=== PATIENT | male | born 1955 | race Caucasian/White ===

== ENCOUNTER 2016-10-29 10:15 | Observation (INO) | payer MEDICARE, OTHER ==
[2016-10-29] MEDS ORDERED: NITRO-BID 2% UD PACKETS ONE (10:38)
--- NOTE | 2016-10-29 10:40 | ERPHSYRPT ---
- History of Present Illness Time Seen by Provider: 10/29/16 10:35 Historian: patient Exam Limitations: no limitations Patient Subjective Stated Complaint: pt here for chest pain to left side of chest that radiates to shculder for a couple hours, was at rest when pain started, no other syptoms,states pain is a pressure with stabbing pains off and on Triage Nursing Assessment: pt walked in a/o resp easy, chest clear, no edema Physician History: This 60-year-old white male who arrives with complaint of chest pain left lower chest anteriorly sharp in character but now dull ache worse with deep breathing symptoms since 2 hours states the pain radiates to her shoulder he states she has been seen by a timber hewer in the past secondary pain in his left arm he does have a history of high blood pressure he states that he has has had no history of myocardial infarctions in the past. Patient denies shortness of breath or nausea or diaphoresis. Past medical history includes psoriatic arthritis, osteoarthritis, chronic back pain. Past surgical history includes orthopedic surgery and back surgery. Timing/Duration: today (symptoms for 2 hours) Activities at Onset: rest Quality: dullness, sharpness Location: other (left lower anterior chest) Chest Pain Radiation: arm (left shoulder ) Severity of Pain-Max: moderate Severity of Pain-Current: moderate Modifying Factors: Improves With: breathing (worse with deep breathin) Associated Symptoms: hurts to breathe, No nausea, No vomiting, No palpitations, No heartburn, No abdominal pain, No shortness of breath, No cough, No diaphoresis, No chills, No fever, No fatigue, No weakness, No swelling/lump in chest, No syncope, No rash, No headache, No dizziness, No edema, No back pain Nitro Today/Relief: provided by ED (Nitropaste in the emergency room 1 inch) Aspirin Treatment Today: provided at home (patient to 325 mg 2 tabletsat home 1 hour ago) Allergies/Adverse Reactions: amitriptyline Allergy (Verified 10/29/16 10:24) hydromorphone HCl [From Dilaudid] Allergy (Verified 10/29/16 10:24) zolpidem tartrate [From Ambien] Allergy (Verified 10/29/16 10:24) Home Medications: Methotrexate Sodium [Methotrexate] 2.5 mg PO UD 01/06/14 [History] Prednisone 2.5 mg PO DAILY 01/06/14 [History] Calcium Carbonate/Vitamin D3 [Vitamin D-3 400 Units Tablet] 1 each PO DAILY 10/25 [History] Dicyclomine HCl [Bentyl] 10 mg PO .PRN 10/14/16 [History] Lisinopril 5 mg [Zestril 5 MG] 5 mg PO DAILY 10/14/16 [History] Morphine Sulfate 30 mg PO Q12H 10/14/16 [History] Vitamin B Complex 1 each PO DAILY 10/14/16 [History] Pravastatin Sodium 20 mg DAILY 10/29/16 [History] Hx Tetanus, Diphtheria Vaccination/Date Given: Yes (UNKNOWN) Hx Influenza Vaccination/Date Given: Yes Hx Pneumococcal Vaccination/Date Given: Yes Immunizations Up to Date: Yes - Review of Systems Constitutional: No Fever, No Chills Eyes: No Symptoms Ears, Nose, & Throat: No Symptoms Respiratory: No Cough, No Dyspnea Cardiac: Chest Pain, No Edema, No Palpitations, No Syncope, No Orthopnea Abdominal/Gastrointestinal: No Abdominal Pain, No Nausea, No Vomiting, No Diarrhea Genitourinary Symptoms: No Dysuria Musculoskeletal: No Back Pain, No Neck Pain Skin: No Rash Neurological: No Dizziness, No Focal Weakness, No Sensory Changes Psychological: No Symptoms Endocrine: No Symptoms All Other Systems: Reviewed and Negative - Past Medical History Pertinent Past Medical History: Yes Neurological History: No Pertinent History Cardiac History: High Cholesterol, Hypertension Respiratory History: No Pertinent History Endocrine Medical History: No Pertinent History Musculoskeletal History: Arthritis GI Medical History: Colitis History: No Pertinent History Psycho-Social History: No Pertinent History Male Reproductive Disorders: No Pertinent History Other Medical History: back problems - Past Surgical History Past Surgical History: Yes Musculoskeletal: Orthopedic Surgery Other Surgical History: back surgery - Social History Smoking Status: Former smoker How long have you smoked: 45 Exposure to second hand smoke: No Drug Use: none Patient Lives Alone: No - Nursing Vital Signs Nursing Vital Signs: Initial Vital Signs Temperature 97.5 F Temperature Source Oral Pulse Rate [] 70 Pulse Rate 65 Respiratory Rate 18 Blood Pressure [] 110/67 Pain Intensity 0 - Physical Exam General Appearance: mild distress Eye Exam: PERRL/EOMI, eyes nml inspection Ears, Nose, Throat Exam: normal ENT inspection, moist mucous membranes Neck Exam: normal inspection, non-tender, supple, full range of motion Respiratory Exam: normal breath sounds, lungs clear, airway intact, other (pain with deep breathing left lower anterior chest), No chest tenderness, No respiratory distress, No diminished breath sounds, No accessory muscle use, No prolonged expirations, No crackles/rales, No rhonchi, No wheezing, No stridor, No pleural rub Cardiovascular Exam: regular rate/rhythm, normal heart sounds, normal peripheral pulses Gastrointestinal/Abdomen Exam: soft, No tenderness, No mass Back Exam: normal inspection, No CVA tenderness, No vertebral tenderness Extremity Exam: normal inspection, normal range of motion Neurologic Exam: alert, oriented x 3, cooperative, normal mood/affect, sensation nml, No motor deficits Skin Exam: normal color, warm, dry SpO2 Interpretation: normal (98%) SpO2: 98 Oxygen Delivery: Room Air - Course Nursing assessment & vital signs reviewed: Yes EKG Interpreted by Me: RATE (71 bpm), Sinus Rhythm, Other (EKG: Sinus rhythm, 71 bpm, normal axis, no acute ST or T wave changes, essentially normal EKG) - Radiology Exams Chest X-ray Interpretation: Discussed w/ radiologist (CHEST X_RAY: iMPRESSION 1. mINIMAL transverse hazy density at the lateral left lung base likely represents plate atelectasis or minimal scarring. This appears to be new from March 29, 2009, no airspace infiltrates or other acute cardiopulmonary process is seen) - CT Exams Chest CT Interpretation: Discussed w/radiologist (CT chest with contrast impression 1. No evidence of acute pulmonary embolism, no evidence of thoracic aortic aneurysm or dissection 2. Minimal plate atelectasis versus linear scarring left lung base laterally 3. No other acute cardiopulmonary prrocess is seen, subtle emphysematous changes seen within both lung apices) Ordered Tests: Active Orders 24 hr Category Date Time Status EKG-ER Only STAT Care 10/29/16 10:34 Active IV Insertion STAT Care 10/29/16 10:34 Active Pulse Oximetry (ED) STAT Care 10/29/16 10:34 Active CHEST 1 VIEW (PORTABLE) Stat Exams 10/29/16 10:34 Completed CHEST WITH CONTRAST [CT] Stat Exams 10/29/16 11:49 Completed CBC W DIFF Stat Lab 10/29/16 10:30 Completed CMP Stat Lab 10/29/16 10:30 Completed D-DIMER QUANTITATION Stat Lab 10/29/16 10:30 Completed TROPONIN Q3H Lab 10/29/16 10:45 Completed TROPONIN Q3H Lab 10/29/16 13:25 Completed TROPONIN Q3H Lab 10/29/16 16:45 Ordered TROPONIN Q3H Lab 10/29/16 19:45 Ordered TROPONIN Q3H Lab 10/29/16 22:45 Ordered Medication Summary Discontinued Medications Generic Name Dose Route Start Last Admin Trade Name Freq PRN Reason Stop Dose Admin Morphine Sulfate 4 mg 10/29/16 11:29 10/29/16 11:27 Morphine Sulfate 4 Mg Inj IV 10/29/16 11:30 4 mg STAT ONE Administration Morphine Sulfate Confirm 10/29/16 11:30 Morphine Sulfate 4 Mg Inj Administered 10/29/16 11:31 Dose 4 mg .ROUTE .STK-MED ONE Nitroglycerin Confirm 10/29/16 10:38 Nitro-Bid 2% Ud Packets Administered 10/29/16 10:39 Dose 1 gm .ROUTE .STK-MED ONE Nitroglycerin 1 gm 10/29/16 10:46 10/29/16 10:56 Nitro-Bid 2% Ud Packets TOP 10/29/16 10:47 1 gm STAT ONE Administration Lab/Rad Data: Laboratory Result Diagrams 10/29/16 10:30 10/29/16 10:30 Laboratory Results 10/29/16 10/29/16 10/29/16 Range/Units 13:25 10:45 10:30 WBC (4.0-10.5) K/mm3 RBC (4.1-5.6) M/mm3 Hgb (12.5-18.0) gm/dl Hct (42-50) % MCV (78-100) fl MCH (26-32) pg MCHC (32-36) g/dl RDW (11.5-14.0) % Plt Count (150-450) K/mm3 MPV (6-9.5) fl Gran % (36.0-66.0) % Lymphocytes % (24.0-44.0) % Monocytes % (0.0-12.0) % Eosinophils % (0.00-5.0) % Basophils % (0.0-0.4) % Basophils # (0-0.4) D-Dimer 501.12 H* (0.00-500.00) ng/mL Sodium (136-145) mEq/L Potassium (3.5-5.1) mEq/L Chloride (98-107) mEq/L Carbon Dioxide (21-32) mEq/L Anion Gap (5-15) MEQ/L BUN (9-20) mg/dL Creatinine (0.55-1.30) mg/dl Estimated GFR ML/MIN Glucose (70-110) MG/DL Calcium (8.5-10.1) mg/dL Total Bilirubin (0.2-1.0) mg/dL AST (15-37) U/L ALT (12-78) U/L Alkaline Phosphatase (46-116) U/L Troponin I < 0.017 < 0.017 (0.000-0.056) ng/ml Serum Total Protein (6.4-8.2) gm/dL Albumin (3.4-5.0) g/dL 10/29/16 10/29/16 Range/Units 10:30 10:30 WBC 8.5 (4.0-10.5) K/mm3 RBC 4.40 (4.1-5.6) M/mm3 Hgb 13.6 (12.5-18.0) gm/dl Hct 40.2 L (42-50) % MCV 91.4 (78-100) fl MCH 30.9 (26-32) pg MCHC 33.8 (32-36) g/dl RDW 12.9 (11.5-14.0) % Plt Count 189 (150-450) K/mm3 MPV 10.0 H (6-9.5) fl Gran % 50.9 (36.0-66.0) % Lymphocytes % 38.0 (24.0-44.0) % Monocytes % 9.6 (0.0-12.0) % Eosinophils % 1.3 (0.00-5.0) % Basophils % 0.2 (0.0-0.4) % Basophils # 0.02 (0-0.4) D-Dimer (0.00-500.00) ng/mL Sodium 141 (136-145) mEq/L Potassium 4.1 (3.5-5.1) mEq/L Chloride 105 (98-107) mEq/L Carbon Dioxide 27.5 (21-32) mEq/L Anion Gap 12.2 (5-15) MEQ/L BUN 15 (9-20) mg/dL Creatinine 0.84 (0.55-1.30) mg/dl Estimated GFR > 60 ML/MIN Glucose 119 H (70-110) MG/DL Calcium 8.5 (8.5-10.1) mg/dL Total Bilirubin 0.50 (0.2-1.0) mg/dL AST 25 (15-37) U/L ALT 28 (12-78) U/L Alkaline Phosphatase 45 L (46-116) U/L Troponin I (0.000-0.056) ng/ml Serum Total Protein 6.8 (6.4-8.2) gm/dL Albumin 4.1 (3.4-5.0) g/dL - Progress Progress: improved Air Movement: fair Progress Note: 10/29/16 10:41 60-year-old white male arrives with complaint of pain in left anterior chest which was initially sharp worse with deep breathing but now described as dull symptoms going on for 2 hours began at rest patient states that he is not short of breath he has no nausea no diaphoresis, patient took 2 full size aspirin tablets at one hour prior to arrival. Patient is on morphine at home for chronic back pain he does not want any pain medications in the emergency room. Patient is given 1 inch of Nitropaste in the emergency room. Awaiting labs EKG essentially normal, 10/29/16 14:[address] chest with contrast negative PE negative aortic dissection or aneurysm. Patient is feeling better I had arranged for patient to be placed on admission with serial troponin however patient states that he really does not want to be admitted. Will await second troponin and discharge if normal. Patient does have morphine at home 10/29/16 14:16 Patient now states that he would like to be placed on observation we will go ahead and write for orders. placed - Departure Time of Disposition: 14:18 Departure Disposition: Observation Clinical Impression: Chest pain Qualifiers: Chest pain type: unspecified Qualified Code(s): R07.9 - Chest pain, unspecified Condition: Fair Critical Care Time: No
[2016-10-29] MEDS ORDERED: NITRO-BID 2% UD PACKETS TOP ONE (10:46)
[2016-10-29 10:48] LABS: BASOPHIL % 0.2 % (0.0-0.4); Eosinophil % 1.3 % (0.00-5.0); Granulocytes % 50.9 % (36.0-66.0); Mean Cell Volume 91.4 fl (78-100); Mean Corpuscular Hemoglobin 30.9 pg (26-32); Monocytes % 9.6 % (0.0-12.0); Platelet Count 189 K/mm3 (150-450); Red Cell Distribution Width 12.9 % (11.5-14.0); White Blood Count 8.5 K/mm3 (4.0-10.5)
[2016-10-29 11:00] LABS: ALBUMIN 4.1 g/dL (3.4-5.0); ALKALINE PHOSPHATASE 45 U/L (46-116); ANION GAP 12.2 MEQ/L (5-15); BLOOD UREA NITROGEN 15 mg/dL (9-20); CHLORIDE 105 mEq/L (98-107); Carbon Dioxide 27.5 mEq/L (21-32); Glucose 119 MG/DL (70-110); Potassium 4.1 mEq/L (3.5-5.1); SGOT/AST 25 U/L (15-37); SGPT/ALT 28 U/L (12-78); SODIUM 141 mEq/L (136-145); Total Protein 6.8 gm/dL (6.4-8.2)
--- NOTE | 2016-10-29 11:17 | XRAY ---
Exam: AP upright portable chest film from 1100 hrs. on 10/29/2016. Comparison: Two-view chest from 03/29/2009. Indication: Chest pain. Findings: The transverse heart size is normal. The adrianna and mediastinal structures appear unremarkable. There is adequate inflation of the lungs. The pulmonary vessels are not congested. There is minimal transverse hazy density at the lateral left lung base which likely represents some mild subsegmental atelectasis or scarring. This is new from 03/29/2009. A discrete air space infiltrate is not seen. No pneumothorax is seen. No Brayan B-lines or pleural effusions blunting the lateral costophrenic angles are seen. No acute osseous process is seen. There is evidence of prior anterior surgical fusion at C6-C7 with a small metallic plate and 4 screws. EKG leads are seen in place. Impression: 1. Minimal transverse hazy density at the lateral left lung base likely represents plate atelectasis or minimal scarring. This does appear to be new from 03/29/2009. 2. No air space infiltrates or other acute cardiopulmonary process is seen.
[2016-10-29] MEDS ORDERED: MORPHINE SULFATE 4 MG INJ IV ONE (11:29)
[2016-10-29] MEDS ORDERED: MORPHINE SULFATE 4 MG INJ ONE (11:30)
--- NOTE | 2016-10-29 13:35 | XRAY ---
Examination: CT of the chest with IV contrast per PE protocol from 10/29/2016. CTDI: 20.00 Comparison: AP upright portable chest film from 10/29/2016. Indication: Chest pain, elevated d-dimer. Technique: Post-IV contrast axial images were obtained through the chest protocol using 80 cc of [id number]-370 IV contrast material. Reconstructed coronal MIP and sagittal images were created and reviewed. Findings: The pulmonary arteries are well opacified and reveal no filling defects to suggest pulmonary embolism. The thoracic aorta reveals no evidence of aneurysm or dissection. The heart size is normal. Some left coronary artery vascular calcification is seen. No pericardial effusion is seen. No abnormally enlarged mediastinal or perihilar lymph nodes are seen. Subtle emphysematous changes are seen within the lung apices, right greater than left. There is a small calcified granuloma within the posterior left lower lobe. Some posterior dependent atelectatic changes are seen within both lower lung mach[place], more prominent on the left than right. There also appears to be some minimal subsegmental plate atelectasis versus scarring at the lateral left lung base. No air space infiltrates, pneumothorax, or pleural fluid is seen. The central airways are patent. No suspicious soft tissue lung nodules are seen. No acute process is seen within the visualized upper abdomen. The adrenal glands appear normal. The skeleton reveals no acute fracture or aggressive bone lesion. There is evidence of prior lower anterior cervical fusion with a small metallic plate and 4 screws. Impression: 1. I see no evidence of acute pulmonary embolism. Nor do I see evidence of thoracic aortic aneurysm or aortic dissection. Incidentally, the left vertebral artery arises directly from the aortic arch rather than the left subclavian artery. This represents a normal variant. 2. Minimal plate atelectasis versus linear scarring is seen at the lateral left lung base. No air space infiltrates are seen. There are also some minor atelectatic changes within the posterior lung bases. 3. No other acute cardiopulmonary process is seen. Subtle emphysematous changes are seen within both lung apices, right greater than left.
[2016-10-29] MEDS ORDERED: Zofran 4 MG/2 ML VIAL IV PRN (15:39)
[2016-10-29] MEDS ORDERED: MORPHINE SULFATE 4 MG INJ IV PRN (15:39)
[2016-10-29] MEDS ORDERED: TYLENOL 325 MG PO PRN (18:07)
--- NOTE | 2016-10-29 18:08 | PCM.HP ---
History of Present Illness - Chief Complaint Chief Complaint: chest pain Date: 10/29/16 History of Present Illness: is a 60 year old male. who presented with sudden onset of left sided chest pain radiating to the shoulder and more sharp pain that changed to an aching pain no shortness of breath or diaphoresis. No vomiting no nausea. No recent illness, no dyspnea with exertion, no orthopnea. No swelling no recent increased activity or injury. Follows with Dr. Saez for cardiology. - Review of Systems Constitutional: No Fever, No Chills Eyes: No Symptoms Ears, Nose, & Throat: No Symptoms Respiratory: No Cough, No Short Of Breath Cardiac: Chest Pain, No Edema, No Syncope Abdominal/Gastrointestinal: No Abdominal Pain, No Nausea, No Vomiting, No Diarrhea Genitourinary Symptoms: No Dysuria Musculoskeletal: No Back Pain, No Neck Pain Skin: No Rash Neurological: No Dizziness, No Focal Weakness, No Sensory Changes Psychological: No Symptoms Endocrine: No Symptoms Hematologic/Lymphatic: No Symptoms Immunological/Allergic: No Symptoms Medications & Allergies Home Medications: Home Medication List Methotrexate Sodium [Methotrexate] 2.5 mg PO UD 01/06/14 [History Confirmed ] Prednisone 2.5 mg PO DAILY 01/06/14 [History Confirmed 10/29/16] Calcium Carbonate/Vitamin D3 [Vitamin D-3 400 Units Tablet] 1 each PO DAILY 10/25 [History Confirmed 10/29/16] Dicyclomine HCl [Bentyl] 10 mg PO DAILY 10/14/16 [History Confirmed 10/29/16] Lisinopril 5 mg [Zestril 5 MG] 5 mg PO DAILY 10/14/16 [History Confirmed 10/29/16] Morphine Sulfate 30 mg PO BID 10/14/16 [History Confirmed 10/29/16] Vitamin B Complex 1 each PO DAILY 10/14/16 [History Confirmed 10/29/16] Mesalamine [Lialda] 1.2 gm PO UD 10/29/16 [History Confirmed 10/29/16] Pravastatin Sodium 20 mg PO HS 10/29/16 [History Confirmed 10/29/16] Allergies/Adverse Reactions: Allergies Allergy/AdvReac Type Severity Reaction Status Date / Time amitriptyline Allergy Verified 10/29/16 10:24 hydromorphone HCl Allergy Verified 10/29/16 10:24 [From Dilaudid] zolpidem tartrate Allergy Verified 10/29/16 10:24 [From Ambien] - Past Medical History Past Medical History: Yes Neurological History: No Pertinent History Cardiac History: High Cholesterol, Hypertension Respiratory History: No Pertinent History Endocrine Medical History: No Pertinent History Musculoskelatal History: Arthritis, Degenerative Disk Disease GI Medical History: Colitis History: No Pertinent History Pyscho-Social History: Depression Male Reproductive Disorders: No Pertinent History Comment: ulcerative colitis dx 4 mos ago - Past Surgical History Past Surgical History: Yes Musculskeletal Surgical Hx: Orthopedic Surgery Other Surgical History: back surgery fuased C 4- 5 - Social History Smoking Status: Former smoker How long have you smoked: 45 Exposure to second hand smoke: No Alcohol: Rarely Drug Use: none - Physical Exam Vital Signs: Vital Signs - 24 hr Temp Pulse Pulse Resp BP Pulse Ox 10/29/16 16:50 97.7 F 65 20 108/63 98 10/29/16 16:30 97.7 F 65 20 108/63 98 10/29/16 16:00 97.7 F 65 20 108/63 98 10/29/16 15:05 97.7 F 65 20 108/63 97 10/29/16 14:47 58 L 16 97 10/29/16 14:18 98 10/29/16 13:15 65 18 110/67 10/29/16 12:30 97 10/29/16 11:34 62 18 122/80 10/29/16 11:20 61 18 144/84 10/29/16 10:45 56 L 16 125/80 10/29/16 10:22 70 10/29/16 10:18 97.5 F 72 16 134/81 98 10/29/16 10:15 98 General Appearance: no apparent distress, alert Neurologic Exam: alert, oriented x 3, cooperative, normal mood/affect, nml cerebellar function, nml station & gait, sensation nml, No motor deficits Eye Exam: PERRL/EOMI, eyes nml inspection Ears, Nose, Throat Exam: normal ENT inspection, TMs normal, pharynx normal, moist mucous membranes Neck Exam: normal inspection, non-tender, supple, full range of motion Respiratory Exam: normal breath sounds, chest tenderness (left anterior costal border), lungs clear, No respiratory distress Cardiovascular Exam: regular rate/rhythm, normal heart sounds, normal peripheral pulses Gastrointestinal/Abdomen Exam: soft, normal bowel sounds, No tenderness, No mass Back Exam: normal inspection, normal range of motion, No CVA tenderness, No vertebral tenderness Extremity Exam: normal inspection, normal range of motion, pelvis stable Skin Exam: normal color, warm, dry, No rash Lymphatic Exam: No adenopathy Results - Labs Lab/Micro Results: Lab Results-Last 24 Hours 10/29/16 Range/Units 16:45 Troponin I < 0.017 (0.000-0.056) ng/ml - Other Procedures and Tests Respiratory Therapy 10/30/16 05:00 EKG ONCE 10/31/16 05:00 EKG ONCE 11/01/16 05:00 EKG ONCE Assessment/Plan (1) Chest pain Current Visit: Yes Status: Acute Qualifiers: Chest pain type: unspecified Qualified Code(s): R07.9 - Chest pain, unspecified Assessment & Plan: with risk factor will do rule out [place] telemetry received aspirin continue statin appears more consistent with costal chondritis right now continue rule out pain is improving now if coke still cleaner tomorrow discussed trial of short term increased steroid. Will have f/u for stress testing with his gamemaster Dr. Saez if seriel testing remains negative EKG reviewed. ddimer elevated but CT negative continue obs Code(s): R07.9 - CHEST PAIN, UNSPECIFIED (2) Ulcerative colitis Current Visit: Yes Status: Chronic Code(s): K51.90 - ULCERATIVE COLITIS, UNSPECIFIED, WITHOUT COMPLICATIONS (3) Lumbar degenerative disc disease Current Visit: Yes Status: Acute Assessment & Plan: his chronic pain medications were confirmed with inspect and continued. Code(s): M51.36 - OTHER INTERVERTEBRAL DISC DEGENERATION, LUMBAR REGION
[2016-10-29] MEDS ORDERED: BENTYL 20 MG PO PRN (18:22)
[2016-10-29] MEDS: Sodium Chloride 0.9% 10 ML FLUSH Syringe IV SCH (21:20)
[2016-10-29] MEDS: MS CONTIN 30 MG PO SCH (21:20)
[2016-10-29] MEDS ORDERED: ZOCOR 20MG PO SCH (22:00)
[2016-10-30 04:10] VITALS: O2SAT 94
[2016-10-30 05:33] LABS: BASOPHIL % 0.3 % (0.0-0.4); Eosinophil % 2.1 % (0.00-5.0); Granulocytes % 47.1 % (36.0-66.0); Lymphocytes % 37.8 % (24.0-44.0); Mean Corpuscular Hemoglobin 30.7 pg (26-32); Mean Platelet Volume 10.3 fl (6-9.5); Monocytes % 12.7 % (0.0-12.0); Platelet Count 167 K/mm3 (150-450); White Blood Count 6.5 K/mm3 (4.0-10.5)
[2016-10-30] MEDS: Sodium Chloride 0.9% 10 ML FLUSH Syringe IV SCH ×2 (05:45→08:19)
[2016-10-30 06:23] LABS: ALBUMIN 3.6 g/dL (3.4-5.0); ALKALINE PHOSPHATASE 42 U/L (46-116); ANION GAP 10.9 MEQ/L (5-15); BLOOD UREA NITROGEN 14 mg/dL (9-20); CHLORIDE 107 mEq/L (98-107); Carbon Dioxide 28.5 mEq/L (21-32); Cholesterol 177 mg/dL (100-200); Glucose 93 MG/DL (70-110); LDL, DIRECT 117 mg/dL (5-99); Potassium 4.1 mEq/L (3.5-5.1); SGOT/AST 19 U/L (15-37); SGPT/ALT 22 U/L (12-78); SODIUM 142 mEq/L (136-145); TRIGLYCERIDE 119 mg/dL (30-200)
[2016-10-30] MEDS ORDERED: BENTYL 20 MG PO PRN (06:37)
[2016-10-30] MEDS ORDERED: MESALAMINE 1.2 GM PO SCH (06:45)
[2016-10-30] MEDS ORDERED: MEDICATION INTERVENTION MC SCH (07:00)
[2016-10-30 07:33] VITALS: BP 111/62; PULSE 62
[2016-10-30] MEDS: MS CONTIN 30 MG PO SCH (08:16)
--- NOTE | 2016-10-30 08:26 | PCM.DCORD ---
- Discharge Discharge Date: 10/30/16 Disposition: Home, Self-Care Condition: Fair Prescriptions: New Prednisone 10 mg [Deltasone 10 mg] 30 mg PO DAILY #15 tablet Continue Methotrexate Sodium [Methotrexate] 2.5 mg PO UD Prednisone 2.5 mg PO DAILY Vitamin B Complex 1 each PO DAILY Dicyclomine HCl [Bentyl] 10 mg PO DAILY Lisinopril 5 mg [Zestril 5 MG] 5 mg PO DAILY Morphine Sulfate 30 mg PO BID Calcium Carbonate/Vitamin D3 [Vitamin D-3 400 Units Tablet] 1 each PO DAILY Pravastatin Sodium 20 mg PO HS Mesalamine [Lialda] 2 tab PO BID Follow up with: PAIGE PALUMBO [Primary Care Provider] - KAREY DIAZ [COURTESY STAFF] - 1 Week Forms: Patient Portal Information
--- NOTE | 2016-10-30 08:26 | PCM.DS ---
Discharge Summary Date of Admission: 10/29/16 14:55 Date of Discharge: 10/30/16 Admitting Physician: PAIGE PALUMBO Primary Care Provider: PAIGE PALUMBO Allergies Allergies amitriptyline Allergy (Verified 10/29/16 10:24) hydromorphone HCl [From Dilaudid] Allergy (Verified 10/29/16 10:24) zolpidem tartrate [From Ambien] Allergy (Verified 10/29/16 10:24) Hospital Summary - Hospital Course Hospital Course: he presented with new worsening left sided chest pain sharp in nature but to a dull ache and radiating at times with sharp pains to the left shoulder no fever chills cough sob edema palpitations or syncope. Pain worse with palpation and breathing He had serial enzymes negative seriel ekg showed no change and the pain was reproducible discussed this likely represents MSK etiology and will trial treatment with short coarse of steroid burst. 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 Tele had no events. - Vitals & Intake/Output Vital Signs: Vital Signs Temperature 97.7 F 10/30/16 07:32 Pulse Rate 62 10/30/16 07:32 Respiratory Rate 20 10/30/16 07:32 Blood Pressure 111/62 10/30/16 07:32 O2 Sat by Pulse Oximetry 94 L 10/30/16 07:32 Intake & Output: Intake & Output 10/27/16 10/28/16 10/29/16 10/30/16 11:59 11:59 11:59 11:59 Intake Total 2731 Balance 2731 Weight 91.626 kg - Lab Result Diagrams: 10/30/16 05:00 10/30/16 05:00 Lab Results-Last 24 Hrs: Lab Results-Last 24 Hours 10/29/16 10/30/16 10/30/16 Range/Units 16:45 05:00 05:00 WBC 6.5 (4.0-10.5) K/mm3 RBC 4.10 (4.1-5.6) M/mm3 Hgb 12.6 (12.5-18.0) gm/dl Hct 37.7 L (42-50) % MCV 92.0 (78-100) fl MCH 30.7 (26-32) pg MCHC 33.4 (32-36) g/dl RDW 13.0 (11.5-14.0) % Plt Count 167 (150-450) K/mm3 MPV 10.3 H (6-9.5) fl Gran % 47.1 (36.0-66.0) % Lymphocytes % 37.8 (24.0-44.0) % Monocytes % 12.7 H (0.0-12.0) % Eosinophils % 2.1 (0.00-5.0) % Basophils % 0.3 (0.0-0.4) % Basophils # 0.02 (0-0.4) Sodium 142 (136-145) mEq/L Potassium 4.1 (3.5-5.1) mEq/L Chloride 107 (98-107) mEq/L Carbon Dioxide 28.5 (21-32) mEq/L Anion Gap 10.9 (5-15) MEQ/L BUN 14 (9-20) mg/dL Creatinine 0.72 (0.55-1.30) mg/dl Estimated GFR > 60 ML/MIN Glucose 93 (70-110) MG/DL Calcium 8.6 (8.5-10.1) mg/dL Total Bilirubin 0.50 (0.2-1.0) mg/dL AST 19 (15-37) U/L ALT 22 (12-78) U/L Alkaline Phosphatase 42 L (46-116) U/L Troponin I < 0.017 (0.000-0.056) ng/ml Serum Total Protein 6.0 L (6.4-8.2) gm/dL Albumin 3.6 (3.4-5.0) g/dL Triglycerides 119 (30-200) mg/dL Cholesterol 177 (100-200) mg/dL LDL Cholesterol 117 H (5-99) mg/dL HDL Cholesterol 48 (35-60) mg/dL Heart Disease Risk Ratio 3.7 10/30/16 Range/Units 05:00 WBC (4.0-10.5) K/mm3 RBC (4.1-5.6) M/mm3 Hgb (12.5-18.0) gm/dl Hct (42-50) % MCV (78-100) fl MCH (26-32) pg MCHC (32-36) g/dl RDW (11.5-14.0) % Plt Count (150-450) K/mm3 MPV (6-9.5) fl Gran % (36.0-66.0) % Lymphocytes % (24.0-44.0) % Monocytes % (0.0-12.0) % Eosinophils % (0.00-5.0) % Basophils % (0.0-0.4) % Basophils # (0-0.4) Sodium (136-145) mEq/L Potassium (3.5-5.1) mEq/L Chloride (98-107) mEq/L Carbon Dioxide (21-32) mEq/L Anion Gap (5-15) MEQ/L BUN (9-20) mg/dL Creatinine (0.55-1.30) mg/dl Estimated GFR ML/MIN Glucose (70-110) MG/DL Calcium (8.5-10.1) mg/dL Total Bilirubin (0.2-1.0) mg/dL AST (15-37) U/L ALT (12-78) U/L Alkaline Phosphatase (46-116) U/L Troponin I < 0.017 (0.000-0.056) ng/ml Serum Total Protein (6.4-8.2) gm/dL Albumin (3.4-5.0) g/dL Triglycerides (30-200) mg/dL Cholesterol (100-200) mg/dL LDL Cholesterol (5-99) mg/dL HDL Cholesterol (35-60) mg/dL Heart Disease Risk Ratio - Procedures and Test Procedures and Tests throughout Hospitalization: Therapy Orders & Screens 10/29/16 17:28 EKG ONCE Comment: Diagnosis: chest pain 10/30/16 05:00 EKG ONCE Comment: Diagnosis: chest pain 10/31/16 05:00 EKG ONCE Comment: Diagnosis: chest pain 11/01/16 05:00 EKG ONCE Comment: Diagnosis: chest pain Discharge Exam General Appearance: no apparent distress, alert Neurologic Exam: alert, oriented x 3, cooperative, normal mood/affect, nml cerebellar function, sensation nml, No motor deficits Skin Exam: normal color, warm, dry Eye Exam: PERRL, EOMI, eyes nml inspection Ears, Nose, Throat Exam: normal ENT inspection, pharynx normal, moist mucous membranes Neck Exam: normal inspection, non-tender, supple, full range of motion Respiratory Exam: normal breath sounds, chest tenderness (left anterior reproduces symptoms.), lungs clear, No respiratory distress Cardiovascular Exam: regular rate/rhythm, normal heart sounds Gastrointestinal/Abdomen Exam: soft, No tenderness, No mass Extremity Exam: normal inspection, normal range of motion Back Exam: normal inspection, normal range of motion, No CVA tenderness, No vertebral tenderness Male Genitalia Exam: deferred Rectal Exam: deferred Final Diagnosis/Problem List - Final Discharge Diagnosis/Problem (1) Chest pain Status: Acute (2) Ulcerative colitis Status: Chronic (3) Lumbar degenerative disc disease Status: Acute (4) Costal chondritis Status: Acute - Discharge Discharge Date: 10/31/16 Disposition: Home, Self-Care Condition: Good Prescriptions: New Prednisone 10 mg [Deltasone 10 mg] 30 mg PO DAILY #15 tablet Continue Methotrexate Sodium [Methotrexate] 2.5 mg PO UD Prednisone 2.5 mg PO DAILY Vitamin B Complex 1 each PO DAILY Dicyclomine HCl [Bentyl] 10 mg PO DAILY Lisinopril 5 mg [Zestril 5 MG] 5 mg PO DAILY Morphine Sulfate 30 mg PO BID Calcium Carbonate/Vitamin D3 [Vitamin D-3 400 Units Tablet] 1 each PO DAILY Pravastatin Sodium 20 mg PO HS Mesalamine [Lialda] 2 tab PO BID Instructions: Atypical Chest Pain Follow up with: PAIGE PALUMBO [Primary Care Provider] - 11/06/16 1:45 pm KAREY SAEZ [COURTESY STAFF] - 11/12/16 10:45 am (Follow up is with Physician Hr Leader of Dr. Neymar Saez) Forms: Discharge Instructions, Patient Portal Information
[2016-10-30] MEDS ORDERED: ASACOL HD PO SCH (08:30)
[2016-10-30] MEDS ORDERED: Zestril 5 MG PO SCH (10:00)
[2016-10-30] MEDS ORDERED: DELTASONE 5 MG PO SCH (10:00)
[2016-10-30] MEDS ORDERED: PREDNISONE 2.5 MG PO SCH (10:00)
== END 2016-10-30 10:15 | disposition home or self-care (01) ==
LOC: ED 10:15 → MED SURG 14:55
PROVIDERS: ADMIT Family Medicine; ATTEND Family Medicine
DX: R07.9 Chest pain, unspecified (principal); K51.90 Ulcerative colitis, unspecified, without complications; M51.36 Other intervertebral disc degeneration, lumbar region; M94.0 Chondrocostal junction syndrome [Tietze]; I10 Essential (primary) hypertension; E78.00 Pure hypercholesterolemia, unspecified; M19.90 Unspecified osteoarthritis, unspecified site; F32.9 Major depressive disorder, single episode, unspecified; Z79.899 Other long term (current) drug therapy
CPT/HCPCS: 36000; 36415; 71010; 71260; 80053; 80061; 83721; 84484; 85025; 85379; 93005; 93268; 94760; 96374; 99285; G0378; J2270; A9270-GY; J7506

== ENCOUNTER 2017-01-31 16:10 | Emergency (ER) | payer MEDICARE, OTHER ==
[2017-01-31] MEDS ORDERED: Sodium Chloride 0.9% 1000 ML 1,000 ML IV STA ×2 (16:30→17:51)
[2017-01-31] MEDS ORDERED: Zofran 4 MG/2 ML VIAL IV ONE (16:31)
[2017-01-31] MEDS ORDERED: MORPHINE SULFATE 4 MG INJ IV ONE (16:31)
--- NOTE | 2017-01-31 16:35 | ERPHSYRPT ---
- History of Present Illness Time Seen by Provider: 01/31/17 16:31 Historian: patient Exam Limitations: no limitations Patient Subjective Stated Complaint: PT states "About 2 pm, my lower stomach started to hurt and I got really sweaty." Triage Nursing Assessment: PT alert and oriented X 3, skin pwd ambulates hunched over, ptis guarding his lower abdomen. able to speak in full sentences with clear speech Physician History: This is a 61-year-old white male who arrives with complaint of lower abdominal pain severe crampy in nature suprapubic region associated with diaphoresis swelling states he felt dizzy at the time of the pain. Patient apparently was initially seen by medics and refused transport. He does state he is feeling now. Past medical history includes hypercholesterolemia high blood pressure arthritis colitis and chronic back pain. Past surgical history includes orthopedic surgery back surgery Timing/Duration: today (2 pm) Activities at Onset: none Quality: cramping Abdominal Pain Onset Location: suprapubic, other (SUPRAPUBIC AND LEFT LOWER QUADRANT) Pain Radiation: no radiation Severity of Pain-Max: moderate Severity of Pain-Current: mild Modifying Factors: Worsens With: analgesics, antacids, breathing, coughing, defecating, eating, exercise, lying down, movement, palpation, rest, urinating, vomiting, position, walking Associated Symptoms: diaphoresis, No back, No chest pain, No diarrhea, No fever/ chills, No fatigue, No headache, No heartburn, No loss of appetite, No nausea, No neck pain, No rash, No shortness of breath, No syncope, No vomiting, No weakness Previous symptoms: no prior history Allergies/Adverse Reactions: amitriptyline Allergy (Verified 10/29/16 10:24) hydromorphone HCl [From Dilaudid] Allergy (Verified 10/29/16 10:24) zolpidem tartrate [From Ambien] Allergy (Verified 10/29/16 10:24) Home Medications: Prednisone 2.5 mg PO DAILY 01/06/14 [History] Calcium Carbonate/Vitamin D3 [Vitamin D-3 400 Units Tablet] 1 each PO DAILY 10/25 [History] Dicyclomine HCl [Bentyl] 10 mg PO DAILY 10/14/16 [History] Lisinopril 5 mg [Zestril 5 MG] 5 mg PO DAILY 10/14/16 [History] Morphine Sulfate 30 mg PO BID 10/14/16 [History] Vitamin B Complex 1 each PO DAILY 10/14/16 [History] Mesalamine [Lialda] 2 tab PO BID 10/29/16 [History] Pravastatin Sodium 20 mg PO HS 10/29/16 [History] Hx Tetanus, Diphtheria Vaccination/Date Given: No Hx Influenza Vaccination/Date Given: Yes Hx Pneumococcal Vaccination/Date Given: Yes Immunizations Up to Date: Yes - Review of Systems Constitutional: No Fever, No Chills Eyes: No Symptoms Ears, Nose, & Throat: No Symptoms Respiratory: No Cough, No Dyspnea Cardiac: No Chest Pain, No Edema, No Syncope Abdominal/Gastrointestinal: Abdominal Pain, No Nausea, No Vomiting, No Diarrhea , No Constipation, No Hematemesis, No Hematochezia, No Melena, No Appetite Changes Genitourinary Symptoms: No Dysuria Musculoskeletal: No Back Pain, No Neck Pain Skin: No Rash Neurological: No Dizziness, No Focal Weakness, No Sensory Changes Psychological: No Symptoms Endocrine: No Symptoms All Other Systems: Reviewed and Negative - Past Medical History Pertinent Past Medical History: Yes Neurological History: No Pertinent History Cardiac History: High Cholesterol, Hypertension Respiratory History: No Pertinent History Endocrine Medical History: No Pertinent History Musculoskeletal History: Arthritis, Degenerative Disk Disease GI Medical History: Colitis History: No Pertinent History Psycho-Social History: Depression Male Reproductive Disorders: No Pertinent History Other Medical History: ulcerative colitis dx 4 mos ago - Past Surgical History Past Surgical History: Yes Musculoskeletal: Orthopedic Surgery Other Surgical History: back surgery fuased C 4- 5 - Social History Smoking Status: Former smoker How long have you smoked: 45 Exposure to second hand smoke: No Drug Use: none Patient Lives Alone: No - Nursing Vital Signs Nursing Vital Signs: Initial Vital Signs Temperature 97.4 F 01/31/17 16:13 Pulse Rate 86 01/31/17 16:13 Respiratory Rate 18 01/31/17 16:13 Blood Pressure 130/71 01/31/17 16:13 O2 Sat by Pulse Oximetry 96 01/31/17 16:13 Pain Scale Pain Intensity 0 - Physical Exam General Appearance: mild distress Eye Exam: PERRL/EOMI, eyes nml inspection Ears, Nose, Throat Exam: normal ENT inspection, pharynx normal, moist mucous membranes Neck Exam: normal inspection, non-tender, supple, full range of motion Respiratory Exam: normal breath sounds, lungs clear, No respiratory distress Cardiovascular Exam: regular rate/rhythm, normal heart sounds Gastrointestinal/Abdomen Exam: soft, normal bowel sounds, tenderness ( suprapubic and left lower quadrant tenderness), No distention, No mass, No guarding, No ecchymosis, No pulsatile mass, No rebound, No hernia, No hepatomegaly, No organomegaly, No splenomegaly, No bruit Male Genitalia Exam: normal genitalia Back Exam: normal inspection, normal range of motion, No CVA tenderness, No vertebral tenderness Extremity Exam: normal inspection, normal range of motion, pelvis stable Neurologic Exam: alert, oriented x 3, cooperative, normal mood/affect, nml cerebellar function, sensation nml, No motor deficits Skin Exam: normal color (he is so full she is observed for), warm, dry SpO2 Interpretation: normal (96%) SpO2: 96 Oxygen Delivery: Room Air - Course Nursing assessment & vital signs reviewed: Yes EKG Interpreted by Me: RATE (80 bpm), NORMAL AXIS, Other (EKG sinus arrhythmia 80 beats per minute normal axis, no acute ST or T wave changes noted) - CT Exams Abdomen/Pelvis CT Interpretation: Tele-radiologist Report, Other (CT abdomen and pelvis without contrast impression: Nonobstructing bilateral renal stones, limited evaluation a large bowel due to significant amount of material within it . interval resolution of previously seen cecal wall thickening.) Ordered Tests: Active Orders 24 hr Category Date Time Status IV Insertion STAT Care 01/31/17 16:30 Active ABDOMEN AND PELVIS W/0 CONTRAS [CT] Stat Exams 01/31/17 17:18 Taken AMYLASE Stat Lab 01/31/17 16:49 Completed CBC W DIFF Stat Lab 01/31/17 16:49 Completed CMP Stat Lab 01/31/17 16:49 Completed LIPASE Stat Lab 01/31/17 16:49 Completed UA W/ MICROSCOPIC Stat Lab 01/31/17 19:00 Completed Medication Summary Discontinued Medications Generic Name Dose Route Start Last Admin Trade Name Freq PRN Reason Stop Dose Admin Sodium Chloride 1,000 mls @ 999 mls/hr 01/31/17 16:30 01/31/17 16:43 Sodium Chloride 0.9% 1000 Ml IV 01/31/17 17:30 999 mls/hr .Q1H1M STA Administration Sodium Chloride Confirm 01/31/17 16:39 Sodium Chloride 0.9% 1000 Ml Administered 01/31/17 16:40 Dose 1,000 mls @ ud .ROUTE .STK-MED ONE Sodium Chloride 1,000 mls @ 999 mls/hr 01/31/17 17:51 01/31/17 18:00 Sodium Chloride 0.9% 1000 Ml IV 01/31/17 18:51 999 mls/hr .Q1H1M STA Administration Sodium Chloride Confirm 01/31/17 17:59 Sodium Chloride 0.9% 1000 Ml Administered 01/31/17 18:00 Dose 1,000 mls @ ud .ROUTE .STK-MED ONE Morphine Sulfate 4 mg 01/31/17 16:31 01/31/17 16:42 Morphine Sulfate 4 Mg Inj IV 01/31/17 16:32 4 mg STAT ONE Administration Morphine Sulfate Confirm 01/31/17 16:39 Morphine Sulfate 4 Mg Inj Administered 01/31/17 16:40 Dose 4 mg .ROUTE .STK-MED ONE Ondansetron HCl 4 mg 01/31/17 16:31 01/31/17 16:42 Zofran 4 Mg/2 Ml Vial IV 01/31/17 16:32 4 mg STAT ONE Administration Ondansetron HCl Confirm 01/31/17 16:38 Zofran 4 Mg/2 Ml Vial Administered 01/31/17 16:39 Dose 4 mg .ROUTE .STK-MED ONE Lab/Rad Data: Laboratory Result Diagrams 01/31/17 16:49 01/31/17 16:49 Laboratory Results 01/31/17 01/31/17 01/31/17 Range/Units 19:00 16:49 16:49 WBC 9.2 (4.0-10.5) K/mm3 RBC 4.28 (4.1-5.6) M/mm3 Hgb 13.2 (12.5-18.0) gm/dl Hct 39.8 L (42-50) % MCV 93.0 (78-100) fl MCH 30.8 (26-32) pg MCHC 33.2 (32-36) g/dl RDW 13.4 (11.5-14.0) % Plt Count 156 (150-450) K/mm3 MPV 10.1 H (6-9.5) fl Gran % 64.7 (36.0-66.0) % Lymphocytes % 20.2 L (24.0-44.0) % Monocytes % 12.7 H (0.0-12.0) % Eosinophils % 2.2 (0.00-5.0) % Basophils % 0.2 (0.0-0.4) % Basophils # 0.02 (0-0.4) Sodium 144 (136-145) mEq/L Potassium 3.7 (3.5-5.1) mEq/L Chloride 109 H (98-107) mEq/L Carbon Dioxide 29.5 (21-32) mEq/L Anion Gap 9.2 (5-15) MEQ/L BUN 15 (9-20) mg/dL Creatinine 0.82 (0.55-1.30) mg/dl Estimated GFR > 60 ML/MIN Glucose 87 (70-110) MG/DL Calcium 8.7 (8.5-10.1) mg/dL Total Bilirubin 0.30 (0.2-1.0) mg/dL AST 22 (15-37) U/L ALT 14 (12-78) U/L Alkaline Phosphatase 54 (46-116) U/L Serum Total Protein 6.5 (6.4-8.2) gm/dL Albumin 3.8 (3.4-5.0) g/dL Amylase 78 (25-115) U/L Lipase 203 (73-393) U/L Ur Collection Type VOID Urine Color YELLOW (YELLOW) Urine Appearance CLEAR (CLEAR) Urine pH 6.0 (5-6) Ur Specific [place] 1.015 (1.005-1.025) Urine Protein NEGATIVE (Negative) Urine Ketones NEGATIVE (NEGATIVE) Urine Blood TRACE NON-HEM (0-5) Ajay/ul Urine Nitrite NEGATIVE (NEGATIVE) Urine Bilirubin NEGATIVE (NEGATIVE) Urine Urobilinogen NORMAL (0-1) mg/dL Ur Leukocyte Esterase TRACE (NEGATIVE) Urine Microscopic RBC 0-2 (0-2) /HPF Urine Microscopic WBC 2-5 (0-5) /HPF Ur Epithelial Cells RARE (FEW) /HPF Urine Bacteria RARE (NEGATIVE) /HPF Urine Mucus SLIGHT (NEGATIVE) /HPF Urine Glucose NEGATIVE (NEGATIVE) mg/dL Specimen Received 01/31/17 1900 - Progress Progress: improved Progress Note: 01/31/17 18:25 This is a 61-year-old white male with sudden onset of lower abdominal pain just prior to arrival. Patient has been given 2 L of normal saline CBC chemistry amylase lipase are all normal. CT of the abdomen and pelvis nonobstructing bilateral renal stones. Limited evaluation large bowel due to significant amount of material within it, interval resolution of previously seen cecal wall thickening. Patient really does not appear to be in any acute distress at this time he has not produced a urine Will give patient a period of time to produce a urine if he does not we'll release him with a slip so that he can have it followed up with his family doctor. Patient is already on morphine at home for pain Will recommend Mirlax for constipation. 01/31/17 19:10 Patient feeling better. Feels comfortable going home. Will discharge patient. I have written a prescription for [place] ask however patient states he has Asya lax at home. Patient with morphine at home. Patient to return home clear fluids 24-48 hours if abdominal pain. Follow-up with his family doctor, call Thursday sooner if worse. Return for acute distress or for severe symptoms. - Departure Time of Disposition: 19:12 Departure Disposition: Home Clinical Impression: Abdominal pain Qualifiers: Abdominal location: unspecified location Qualified Code(s): R10.9 - Unspecified abdominal pain Constipation Qualifiers: Constipation type: unspecified constipation type Qualified Code(s): K59.00 - Constipation, unspecified Condition: Fair Critical Care Time: No Referrals: PAIGE PALUMBO [Primary Care Provider] - Instructions: Abdominal Pain-Adult Additional Instructions: Return home. Plenty of fluids. We'll ask one scoop in 8 ounces of water orally daily. Narcotic analgesia as prescribed by your family doctor.. Follow-up with your family doctor. Return for acute distress or for severe symptoms.
[2017-01-31] MEDS ORDERED: Zofran 4 MG/2 ML VIAL ONE (16:38)
[2017-01-31] MEDS ORDERED: MORPHINE SULFATE 4 MG INJ ONE (16:39)
[2017-01-31] MEDS ORDERED: Sodium Chloride 0.9% 1000 ML 1,000 ML ONE ×2 (16:39→17:59)
[2017-01-31 16:52] LABS: BASOPHIL % 0.2 % (0.0-0.4); Eosinophil % 2.2 % (0.00-5.0); Granulocytes % 64.7 % (36.0-66.0); Lymphocytes % 20.2 % (24.0-44.0); Mean Corpuscular Hemoglobin 30.8 pg (26-32); Mean Platelet Volume 10.1 fl (6-9.5); Monocytes % 12.7 % (0.0-12.0); Platelet Count 156 K/mm3 (150-450); Red Blood Count 4.28 M/mm3 (4.1-5.6); Red Cell Distribution Width 13.4 % (11.5-14.0); White Blood Count 9.2 K/mm3 (4.0-10.5)
[2017-01-31 17:10] LABS: ALBUMIN 3.8 g/dL (3.4-5.0); ALKALINE PHOSPHATASE 54 U/L (46-116); ANION GAP 9.2 MEQ/L (5-15); BLOOD UREA NITROGEN 15 mg/dL (9-20); CHLORIDE 109 mEq/L (98-107); Carbon Dioxide 29.5 mEq/L (21-32); Glucose 87 MG/DL (70-110); LIPASE 203 U/L (73-393); Potassium 3.7 mEq/L (3.5-5.1); SGOT/AST 22 U/L (15-37); SGPT/ALT 14 U/L (12-78); SODIUM 144 mEq/L (136-145); Total Protein 6.5 gm/dL (6.4-8.2)
[2017-01-31 19:06] LABS: Bilirubin NEGATIVE (NEGATIVE); COMPLETE URINE MICROSCOPIC? YES; Collection Type VOID; Glucose NEGATIVE (NEGATIVE); Leukocyte Esterase TRACE (NEGATIVE)
[2017-01-31 19:07] LABS: ADD URINE CULTURE? NO (NO); Bacteria RARE /HPF (NEGATIVE); Blood TRACE NON-HEM Ery/ul (0-5); Epithelial Cells RARE /HPF (FEW); Mucus SLIGHT /HPF (NEGATIVE)
[2017-01-31 19:29] VITALS: BP 105/41; PULSE 75; O2SAT 97
--- NOTE | 2017-01-31 21:44 | XRAY ---
Indication: Lower abdominal pain. Blood in stool. Multiple contiguous axial images obtained through the abdomen and pelvis without contrast using renal stone protocol. Comparison: Contrasted exam of June 13, 2016. Lung bases again demonstrates minimal bibasilar dependent atelectasis, right base bullae, and tiny left posterior gutter calcified granuloma. No consolidation or effusion. Heart is not enlarged. Stable nonobstructing bilateral renal micro-calculi. Noncontrasted stomach and bowel loops appear nonobstructed. Again mild scattered colonic fecal debris throughout. Normal appendix. No free fluid/air. Remaining liver, gallbladder, pancreas, spleen, adrenal glands, kidneys, ureters, and bladder appear unremarkable. Minimal scattered aortoiliac calcifications. No AAA or pathologic retroperitoneal lymphadenopathy. Osseous structures intact again with minimal degenerative changes throughout the spine. There is now small fatty right inguinal hernia. Impression: 1. Stable nonobstructing bilateral micro-calculi. 2. Fecal stasis without obstruction. 3. New fatty right inguinal hernia. Comment: Preliminary interpretation was made by [facility]. No discrepancy. CT DI 23.22
== END 2017-01-31 19:32 | disposition home or self-care (01) ==
LOC: ED 16:10
DX: R10.9 Unspecified abdominal pain (principal); K59.00 Constipation, unspecified; E78.00 Pure hypercholesterolemia, unspecified; I10 Essential (primary) hypertension; R10.32 Left lower quadrant pain; Z79.899 Other long term (current) drug therapy
CPT/HCPCS: 36000; 36415; 74176; 80053; 81000; 82150; 83690; 85025; 96360; 96361; 96374; 99284; J2270; J2405

== ENCOUNTER 2017-08-01 08:19 | Emergency (ER) | payer MEDICARE, OTHER ==
[2017-08-01] MEDS ORDERED: MORPHINE SULFATE 4 MG INJ IV ONE ×3 (08:32→10:36)
[2017-08-01] MEDS ORDERED: Zofran 4 MG/2 ML VIAL IV ONE (08:32)
[2017-08-01] MEDS ORDERED: Sodium Chloride 0.9% 1000 ML 1,000 ML IV STA ×2 (08:32→08:49)
[2017-08-01] MEDS ORDERED: Zofran 4 MG/2 ML VIAL ONE (08:35)
[2017-08-01] MEDS ORDERED: MORPHINE SULFATE 4 MG INJ ONE ×3 (08:35→10:38)
[2017-08-01] MEDS ORDERED: Sodium Chloride 0.9% 1000 ML 1,000 ML ONE ×2 (08:35→09:20)
[2017-08-01 08:44] LABS: Lactic Acid 3.9 (0.4-2.0)
[2017-08-01] MEDS ORDERED: TORAdol 30 mg Injection IV ONE (08:44)
[2017-08-01] MEDS ORDERED: TORAdol 30 mg Injection ONE (08:45)
--- NOTE | 2017-08-01 08:53 | ERPHSYRPT ---
- History of Present Illness Time Seen by Provider: 08/01/17 08:25 Source: patient Exam Limitations: no limitations Patient Subjective Stated Complaint: patient states has stones in past hes in extreme pain hunched over bed Triage Nursing Assessment: pt alert and oriented x3, gait is steady, ambulates by self, hunched over in in extreme pain in back and down right side , bowel sounds present x4. lung sounds clear. skin wamr dry and intact Physician History: 61 y/o male with history of kidney stones comes to the ER with complaints of right flank pain that started 2 hrs prior to arrival. Pt describes the pain as sharp, constant, 10/10, and not relieved by morphine 15mg PO X 1 dose. Pt admits to having nausea, but no vomiting, fever, chills, constipation, diarrhea or urinary symptoms. The kidney stone patient had in the past had passed. Timing/Duration: today Activites at Onset: none Quality: sharpness Onset Location: right flank Pain Radiation: none Severity of Pain-Max: severe Severity of Pain-Current: severe Modifying Factors: Improves With: nothing Associated Symptoms: nausea, No vomiting, No dysuria, No polyuria, No urinary frequency Prior abdominal problems: similar symptoms Allergies/Adverse Reactions: amitriptyline Allergy (Verified 10/29/16 10:24) hydromorphone HCl [From Dilaudid] Allergy (Verified 10/29/16 10:24) zolpidem tartrate [From Ambien] Allergy (Verified 10/29/16 10:24) Home Medications: Calcium Carbonate/Vitamin D3 [Vitamin D-3 400 Units Tablet] 1 each PO DAILY 10/25 [History] Dicyclomine HCl [Bentyl] 10 mg PO DAILY PRN 10/14/16 [History] Lisinopril 5 mg [Zestril 5 MG] 5 mg PO DAILY 10/14/16 [History] Vitamin B Complex 1 each PO DAILY 10/14/16 [History] Pravastatin Sodium 20 mg PO HS 10/29/16 [History] Methotrexate Sodium [Methotrexate] 5 tab PO WEEKLY 06/11/17 [History] Morphine Sulfate Ir 15 mg [Msir 15 mg] 15 mg PO Q6H PRN PRN 06/11/17 [ History] Omeprazole 20 MG [Prilosec 20 mg] 1 cap PO DAILY 06/11/17 [History] Leucovorin Calcium 0 mg PO UD 07/13/17 [History] Hx Tetanus, Diphtheria Vaccination/Date Given: Yes Hx Influenza Vaccination/Date Given: Yes Hx Pneumococcal Vaccination/Date Given: Yes Immunizations Up to Date: Yes - Past Medical History Pertinent Past Medical History: Yes Neurological History: No Pertinent History Cardiac History: High Cholesterol, Hypertension Respiratory History: No Pertinent History Endocrine Medical History: No Pertinent History Musculoskeletal History: Arthritis, Degenerative Disk Disease GI Medical History: Colitis History: No Pertinent History Psycho-Social History: Depression Male Reproductive Disorders: No Pertinent History Other Medical History: ulcerative colitis dx 4 mos ago - Past Surgical History Past Surgical History: Yes Musculoskeletal: Orthopedic Surgery Other Surgical History: back surgery fuased C 4- 5 - Social History Smoking Status: Never smoker How long have you smoked: 45 Exposure to second hand smoke: No Drug Use: none Patient Lives Alone: No - Review of Systems Constitutional: No Fever, No Chills Eyes: No Symptoms Ears, Nose, & Throat: No Symptoms Respiratory: No Cough, No Dyspnea Cardiac: No Chest Pain, No Edema, No Syncope Abdominal/Gastrointestinal: No Abdominal Pain, No Nausea, No Vomiting, No Diarrhea Genitourinary Symptoms: No Dysuria, No Frequency, No Hematuria, No Hesitancy Musculoskeletal: Back Pain, No Neck Pain Skin: No Rash Neurological: No Dizziness, No Focal Weakness, No Sensory Changes Psychological: No Symptoms Endocrine: No Symptoms All Other Systems: Reviewed and Negative - Nursing Vital Signs Nursing Vital Signs: Initial Vital Signs Pulse Rate 79 08/01/17 08:20 Respiratory Rate 20 08/01/17 08:20 Blood Pressure 142/91 08/01/17 08:20 O2 Sat by Pulse Oximetry 98 08/01/17 08:20 Pain Scale Pain Intensity 4 - Physical Exam General Appearance: severe distress, alert Eye Exam: PERRL/EOMI Ears, Nose, Throat Exam: pharynx normal, moist mucous membranes Neck Exam: normal inspection, supple Respiratory Exam: normal breath sounds, lungs clear Cardiovascular Exam: regular rate/rhythm, No edema Gastrointestinal/Abdomen Exam: soft, normal bowel sounds, No tenderness Back Exam: CVA tenderness Extremity Exam: normal inspection, normal range of motion, No pedal edema Neurologic Exam: alert, oriented x 3, cooperative, sensation nml, No motor deficits Skin Exam: normal color, warm, dry, No rash SpO2: 98 Oxygen Delivery: Room Air - Course Nursing assessment & vital signs reviewed: Yes Ordered Tests: Active Orders 24 hr Category Date Time Status Clean Catch Urine Specimen STAT Care 08/01/17 12:00 Active IV Insertion STAT Care 08/01/17 08:32 Active ABDOMEN AND PELVIS W/0 CONTRAS [CT] Stat Exams 08/01/17 08:32 Taken AMYLASE Stat Lab 08/01/17 08:30 Completed CBC W DIFF Stat Lab 08/01/17 08:30 Completed CMP Stat Lab 08/01/17 08:30 Completed CULTURE,URINE Stat Lab 08/01/17 12:00 Received Lactic Acid Stat Lab 08/01/17 08:32 Completed Lactic Acid Stat Lab 08/01/17 10:44 Completed UA W/ MICROSCOPIC Stat Lab 08/01/17 12:00 Completed Medication Summary Discontinued Medications Generic Name Dose Route Start Last Admin Trade Name Freq PRN Reason Stop Dose Admin Sodium Chloride 1,000 mls @ 999 mls/hr 08/01/17 08:32 08/01/17 08:40 Sodium Chloride 0.9% 1000 Ml IV 08/01/17 09:32 999 mls/hr .Q1H1M STA Administration Sodium Chloride Confirm 08/01/17 08:35 Sodium Chloride 0.9% 1000 Ml Administered 08/01/17 08:36 Dose 1,000 mls @ ud .ROUTE .STK-MED ONE Sodium Chloride 1,000 mls @ 999 mls/hr 08/01/17 08:49 08/01/17 09:23 Sodium Chloride 0.9% 1000 Ml IV 08/01/17 09:49 999 mls/hr .Q1H1M STA Administration Sodium Chloride Confirm 08/01/17 09:20 Sodium Chloride 0.9% 1000 Ml Administered 08/01/17 09:21 Dose 1,000 mls @ ud .ROUTE .STK-MED ONE Sodium Chloride 500 mls @ 500 mls/hr 08/01/17 11:13 08/01/17 11:23 Sodium Chloride 0.9% 500 Ml IV 08/01/17 12:12 500 mls/hr .Q1H ONE Administration Sodium Chloride Confirm 08/01/17 11:20 Sodium Chloride 0.9% 500 Ml Administered 08/01/17 11:21 Dose 500 mls @ ud IV .STK-MED ONE Ketorolac Tromethamine 30 mg 08/01/17 08:44 08/01/17 08:45 Toradol 30 Mg Injection IV 08/01/17 08:45 30 mg STAT ONE Administration Ketorolac Tromethamine Confirm 08/01/17 08:45 Toradol 30 Mg Injection Administered 08/01/17 08:46 Dose 30 mg .ROUTE .STK-MED ONE Morphine Sulfate 4 mg 08/01/17 08:32 08/01/17 08:39 Morphine Sulfate 4 Mg Inj IV 08/01/17 08:33 4 mg STAT ONE Administration Morphine Sulfate Confirm 08/01/17 08:35 Morphine Sulfate 4 Mg Inj Administered 08/01/17 08:36 Dose 4 mg .ROUTE .STK-MED ONE Morphine Sulfate 8 mg 08/01/17 09:00 08/01/17 09:03 Morphine Sulfate 4 Mg Inj IV 08/01/17 09:01 8 mg STAT ONE Administration Morphine Sulfate Confirm 08/01/17 09:03 Morphine Sulfate 4 Mg Inj Administered 08/01/17 09:04 Dose 8 mg .ROUTE .STK-MED ONE Morphine Sulfate 4 mg 08/01/17 10:36 08/01/17 10:40 Morphine Sulfate 4 Mg Inj IV 08/01/17 10:37 4 mg STAT ONE Administration Morphine Sulfate Confirm 08/01/17 10:38 Morphine Sulfate 4 Mg Inj Administered 08/01/17 10:39 Dose 4 mg .ROUTE .STK-MED ONE Ondansetron HCl 4 mg 08/01/17 08:32 08/01/17 08:40 Zofran 4 Mg/2 Ml Vial IV 08/01/17 08:33 4 mg STAT ONE Administration Ondansetron HCl Confirm 08/01/17 08:35 Zofran 4 Mg/2 Ml Vial Administered 08/01/17 08:36 Dose 4 mg .ROUTE .STK-MED ONE Tamsulosin HCl 0.4 mg 08/01/17 09:20 08/01/17 09:23 Flomax 0.4 Mg PO 08/01/17 09:21 0.4 mg ONCE ONE Administration Tamsulosin HCl Confirm 08/01/17 09:22 Flomax 0.4 Mg Administered 03/24/18 09:23 Dose 0.4 mg .ROUTE .STK-MED ONE Lab/Rad Data: Laboratory Result Diagrams 08/01/17 08:30 08/01/17 08:30 Laboratory Results 08/01/17 08/01/17 08/01/17 Range/Units 12:00 10:44 08:32 WBC (4.0-10.5) K/mm3 RBC (4.1-5.6) M/mm3 Hgb (12.5-18.0) gm/dl Hct (42-50) % MCV (78-100) fl MCH (26-32) pg MCHC (32-36) g/dl RDW (11.5-14.0) % Plt Count (150-450) K/mm3 MPV (6-9.5) fl Gran % (36.0-66.0) % Eos # (Auto) (0-0.5) Absolute Lymphs (auto) (1.0-4.6) Absolute Monos (auto) (0.0-1.3) Lymphocytes % (24.0-44.0) % Monocytes % (0.0-12.0) % Eosinophils % (0.00-5.0) % Basophils % (0.0-0.4) % Absolute Granulocytes (1.4-6.9) Basophils # (0-0.4) Sodium (137-145) mmol/L Potassium (3.5-5.1) mmol/L Chloride (98-107) mmol/L Carbon Dioxide (22-30) mmol/L Anion Gap (5-15) MEQ/L BUN (9-20) mg/dL Creatinine (0.66-1.25) mg/dL Estimated GFR ML/MIN Glucose (74-106) mg/dL Lactic Acid 0.9 3.9 H (0.4-2.0) Calcium (8.4-10.2) mg/dL Total Bilirubin (0.2-1.3) mg/dL AST (17-59) U/L ALT (0-50) U/L Alkaline Phosphatase (38-126) U/L Serum Total Protein (6.3-8.2) g/dL Albumin (3.5-5.0) g/dL Amylase (30-110) U/L Ur Collection Type VOID Urine Color YELLOW (YELLOW) Urine Appearance CLEAR (CLEAR) Urine pH 5.0 (5-6) Ur Specific [place] 1.020 (1.005-1.025) Urine Protein NEGATIVE (Negative) Urine Ketones NEGATIVE (NEGATIVE) Urine Blood 250 (0-5) Ajay/ul Urine Nitrite NEGATIVE (NEGATIVE) Urine Bilirubin NEGATIVE (NEGATIVE) Urine Urobilinogen NORMAL (0-1) mg/dL Ur Leukocyte Esterase TRACE (NEGATIVE) Urine Microscopic RBC >100 (0-2) /HPF Urine Microscopic WBC 5-10 (0-5) /HPF Ur Epithelial Cells FEW (FEW) /HPF Urine Bacteria FEW (NEGATIVE) /HPF Urine Mucus MODERATE (NEGATIVE) /HPF Urine Culture Reflexed YES (NO) Urine Glucose TRACE (NEGATIVE) mg/dL Specimen Received 08/01/17 1200 08/01/17 08/01/17 Range/Units 08:30 08:30 WBC 11.8 H (4.0-10.5) K/mm3 RBC 4.40 (4.1-5.6) M/mm3 Hgb 13.8 (12.5-18.0) gm/dl Hct 40.9 L (42-50) % MCV 93.0 (78-100) fl MCH 31.4 (26-32) pg MCHC 33.7 (32-36) g/dl RDW 13.2 (11.5-14.0) % Plt Count 238 (150-450) K/mm3 MPV 10.4 H (6-9.5) fl Gran % 50.9 (36.0-66.0) % Eos # (Auto) 0.08 (0-0.5) Absolute Lymphs (auto) 4.45 (1.0-4.6) Absolute Monos (auto) 1.22 (0.0-1.3) Lymphocytes % 37.8 (24.0-44.0) % Monocytes % 10.4 (0.0-12.0) % Eosinophils % 0.7 (0.00-5.0) % Basophils % 0.2 (0.0-0.4) % Absolute Granulocytes 6.01 (1.4-6.9) Basophils # 0.02 (0-0.4) Sodium 142 (137-145) mmol/L Potassium 3.6 (3.5-5.1) mmol/L Chloride 102 (98-107) mmol/L Carbon Dioxide 24 (22-30) mmol/L Anion Gap 20.1 H (5-15) MEQ/L BUN 17 (9-20) mg/dL Creatinine 0.84 (0.66-1.25) mg/dL Estimated GFR > 60 ML/MIN Glucose 150 H (74-106) mg/dL Lactic Acid (0.4-2.0) Calcium 9.5 (8.4-10.2) mg/dL Total Bilirubin 0.50 (0.2-1.3) mg/dL AST 28 (17-59) U/L ALT 23 (0-50) U/L Alkaline Phosphatase 51 (38-126) U/L Serum Total Protein 7.6 (6.3-8.2) g/dL Albumin 4.8 (3.5-5.0) g/dL Amylase 91 (30-110) U/L Ur Collection Type Urine Color (YELLOW) Urine Appearance (CLEAR) Urine pH (5-6) Ur Specific [place] (1.005-1.025) Urine Protein (Negative) Urine Ketones (NEGATIVE) Urine Blood (0-5) Ajay/ul Urine Nitrite (NEGATIVE) Urine Bilirubin (NEGATIVE) Urine Urobilinogen (0-1) mg/dL Ur Leukocyte Esterase (NEGATIVE) Urine Microscopic RBC (0-2) /HPF Urine Microscopic WBC (0-5) /HPF Ur Epithelial Cells (FEW) /HPF Urine Bacteria (NEGATIVE) /HPF Urine Mucus (NEGATIVE) /HPF Urine Culture Reflexed (NO) Urine Glucose (NEGATIVE) mg/dL Specimen Received - Progress Progress: improved Progress Note: 08/01/17 12:13 The patient feels better after receiving multiple doses of morphine, zofran, flomax and 2.5 liters of NS fluids. The CT scan abd/pelvis shows a 3 mm obstructed kidney stone. The rest of the labs are unremarkable. The patient has morphine 15mg at home and will be given prescriptions for flomax and zofran as well as referral to Dr Bobo. - Departure Time of Disposition: 12:16 Departure Disposition: Home Clinical Impression: Kidney stone Condition: Stable Critical Care Time: No Referrals: PAIGE PALUMBO [Primary Care Provider] - LUIS BOBO [COURTESY STAFF] - Instructions: Kidney Stones (DC) Additional Instructions: Follow up with Dr Bobo on Thursday if you should have worsening pain. Prescriptions: Ondansetron [Zofran Odt] 4 mg PO QID PRN #20 tab.rapdis PRN Reason: Nausea/Vomiting Tamsulosin HCl 0.4 mg [Flomax 0.4 MG] 0.4 mg PO DAILY #7 cap
[2017-08-01 09:09] LABS: BASOPHIL % 0.2 % (0.0-0.4); Basophil (Absolute #) 0.02 (0-0.4); Eosinophil % 0.7 % (0.00-5.0); Eosinophil (Absolute #) 0.08 (0-0.5); Granulocyte Absolute (ANC) 6.01 (1.4-6.9); Granulocytes % 50.9 % (36.0-66.0); Hematocrit 40.9 % (42-50); Hemoglobin 13.8 gm/dl (12.5-18.0); Lymphocyte (Absolute #) 4.45 (1.0-4.6); Lymphocytes % 37.8 % (24.0-44.0); Mean Corpuscular Hemoglobin 31.4 pg (26-32); Mean Corpuscular Hgb Concent. 33.7 g/dl (32-36); Mean Platelet Volume 10.4 fl (6-9.5); Monocyte (Absolute #) 1.22 (0.0-1.3); Monocytes % 10.4 % (0.0-12.0); Platelet Count 238 K/mm3 (150-450); Red Cell Distribution Width 13.2 % (11.5-14.0); White Blood Count 11.8 K/mm3 (4.0-10.5)
[2017-08-01 09:14] LABS: ALBUMIN 4.8 g/dL (3.5-5.0); ALKALINE PHOSPHATASE 51 U/L (38-126); AMYLASE 91 U/L (30-110); ANION GAP 20.1 MEQ/L (5-15); BLOOD UREA NITROGEN 17 mg/dL (9-20); CHLORIDE 102 mmol/L (98-107); Calcium 9.5 mg/dL (8.4-10.2); Carbon Dioxide 24 mmol/L (22-30); Creatinine 1 0.84 mg/dL (0.66-1.25); Glucose 150 mg/dL (74-106); Potassium 3.6 mmol/L (3.5-5.1); SGOT/AST 28 U/L (17-59); SGPT/ALT 23 U/L (0-50); SODIUM 142 mmol/L (137-145); Total Protein 7.6 g/dL (6.3-8.2)
[2017-08-01] MEDS ORDERED: Flomax 0.4 MG PO ONE (09:20)
[2017-08-01] MEDS ORDERED: Flomax 0.4 MG ONE (09:22)
[2017-08-01] MEDS ORDERED: Sodium Chloride 0.9% 500 ML 500 ML IV ONE ×2 (11:13→11:20)
[2017-08-01 12:04] LABS: Appearance CLEAR (CLEAR); Bilirubin NEGATIVE (NEGATIVE); Blood 250 Ery/ul (0-5); Glucose TRACE mg/dL (NEGATIVE); Ketones NEGATIVE (NEGATIVE); Leukocyte Esterase TRACE (NEGATIVE); Nitrite NEGATIVE (NEGATIVE); Protein,Urine Dip NEGATIVE (Negative); Urobilinogen NORMAL mg/dL (0-1)
[2017-08-01 12:09] LABS: Bacteria FEW /HPF (NEGATIVE); Epithelial Cells FEW /HPF (FEW); Mucus MODERATE /HPF (NEGATIVE)
[2017-08-01 12:27] VITALS: BP 125/66; PULSE 68; O2SAT 96
--- NOTE | 2017-08-01 20:49 | XRAY ---
Indication: Right flank pain. History kidney stone. Multiple contiguous axial images obtained through the abdomen and pelvis without contrast as ordered. Comparison: January 31, 2017. Lung bases demonstrates stable right base bullae and tiny left posterior gutter calcified granuloma. No infiltrate or effusion. Heart is not enlarged. New 2-3 mm distal right ureter calculus just proximal to the UVJ. The more proximal right ureter is slightly prominent and there is mild hydronephrosis favoring partial obstruction. Again bilateral renal micro-calculi. Noncontrasted stomach and bowel loops appear nonobstructed. Normal appendix. No free fluid/air. Remaining liver, gallbladder, pancreas, spleen, adrenal glands, kidneys, ureters, and bladder appear unremarkable for noncontrast exam. Minimal scattered aortoiliac calcifications without AAA. Osseous structures intact again with minimal degenerative changes throughout the spine. Stable bilateral fatty inguinal hernias. Impression: 1. New 2-3 mm distal right ureter calculus producing partial obstruction. Again incidental bilateral micro-calculi. 2. Stable bilateral fatty inguinal hernias. Comment: Preliminary interpretation was made by [facility]. No discrepancy. CT DI 23.25
== END 2017-08-01 12:32 | disposition home or self-care (01) ==
LOC: ED 08:19
DX: N20.0 Calculus of kidney (principal); Z87.442 Personal history of urinary calculi; Z79.899 Other long term (current) drug therapy
CPT/HCPCS: 36000; 36415; 74176; 80053; 81000; 82150; 83605; 85025; 87086; 96360; 96361; 99284; J1885; J2270; J2405; A9270-GY

== ENCOUNTER 2017-09-30 09:30 | Day surgery (SDC) | payer MEDICARE, OTHER ==
[2017-09-30] MEDS ORDERED: Xylocaine 1% Vial 30 ML PF IJ ONE (09:31)
[2017-09-30] MEDS ORDERED: Marcaine 0.5% SDV 10 ML IJ ONE (09:31)
[2017-09-30] MEDS ORDERED: DIPRIVAN 200 MG/20 ML IV ONE (09:31)
[2017-09-30] MEDS ORDERED: Lactated Ringers 1,000 ML IV ONE (12:04)
--- NOTE | 2017-09-30 13:01 | XRAY ---
21 seconds fluoroscopy time in surgery for right L5-S1 MBB.
--- NOTE | 2017-09-30 13:10 | XRAY ---
Indication: Right L5-S1 MBB. Intraoperative fluoroscopy was provided for 21 seconds. 3 digital spot images submitted for interpretation demonstrates posterior spinal needle tips projecting over the expected course of the right L5 and S1 nerve roots. Correlate with intraoperative findings/report.
--- NOTE | 2017-10-01 09:32 | OP ---
DATE OF PROCEDURE: 09/30/2017 1055 SURGEON: Ranjana Blandon D.O. PREOPERATIVE DIAGNOSIS: Degenerative lumbar spine disease, spondylosis, low back pain. POSTOPERATIVE DIAGNOSIS: Degenerative lumbar spine disease, spondylosis, low back pain. PROCEDURE PERFORMED: Right L5 L4 medial branch block under fluoroscopic guidance. DESCRIPTION OF THE PROCEDURE: The patient was taken to the operating room and placed in the prone position on the table. Skin at the injection site was prepped and draped in sterile fashion. Under fluoroscopy, bony anatomy of the targeted injection site was visualized. Induction agent was given as per anesthesia while vital signs were monitored. The local anesthetic agent used for this injection is 2 cc of 1% lidocaine.. Under fluoroscopic guidance, a #20 gauge standard spinal needle was advanced into the target medial branch through the oblique approach. The medication used for this procedure is preservative-free 0.5 cc of mixed half volume of 1% lidocaine plus half volume of 0.5% Marcaine to each injection site After the needle was being removed, the skin was cleansed with alcohol and then a bandage was applied. No complications or adverse consequences were observed. The patient was returned to the holding area until stabilized before discharge to home. Preoperative pain level is 2 to 3 out of 10 and postoperative pain level is 1 out of 10. The patient will be followed up within ten days after the injection for re-evaluation.
== END 2017-09-30 11:30 | disposition home or self-care (01) ==
LOC: SDC-PAIN 09:30
PROVIDERS: ATTEND Internal Medicine
DX: M54.5 Low back pain (principal); M46.96 Unspecified inflammatory spondylopathy, lumbar region; M51.36 Other intervertebral disc degeneration, lumbar region; M62.838 Other muscle spasm
CPT/HCPCS: 64493; 64494; 72020; 77003; J2001; J2704

== ENCOUNTER 2017-10-10 02:09 | Emergency (ER) | payer MEDICARE, OTHER ==
[2017-10-10] MEDS ORDERED: TORAdol 30 mg Injection IV ONE (02:23)
[2017-10-10] MEDS ORDERED: Zofran 4 MG/2 ML VIAL IV ONE (02:23)
[2017-10-10] MEDS ORDERED: Sodium Chloride 0.9% 1000 ML 1,000 ML IV STA ×2 (02:23→03:39)
[2017-10-10] MEDS ORDERED: Zofran 4 MG/2 ML VIAL ONE (02:27)
[2017-10-10] MEDS ORDERED: TORAdol 30 mg Injection ONE (02:28)
[2017-10-10] MEDS ORDERED: Sodium Chloride 0.9% 1000 ML 1,000 ML ONE ×2 (02:28→03:41)
--- NOTE | 2017-10-10 02:31 | ERPHSYRPT ---
- History of Present Illness Time Seen by Provider: 10/10/17 02:19 Historian: patient Exam Limitations: no limitations Patient Subjective Stated Complaint: pain in abdomen that radiates to back flank on the left. Gets kidney stones every couple of weeks Triage Nursing Assessment: Pt A&O x3, severe abdominal pain that radiates to the left flank, rates pain a 02/17, bp 143/97, temp 97.7, moaning and holding abdomen and rolling on bed, abdomen painful with and without palpation, no other issues at this time, appears to be in severe pain Physician History: 61-year-old white male with history of hyperlipidemia high blood pressure arthritis degenerative disc disease chronic back pain and a history of kidney stones, arrives with complaint of pain in his left flank radiating to his left suprapubic region symptoms since early this evening him no vomiting he states he 's had some hematuria in the past but he hasn't seen any today no dysuria no diarrhea. Past medical history includes hyperlipidemia, high blood pressure, arthritis, degenerative disc disease, colitis, ulcerative colitis, depression, Past surgical history includes orthopedic surgery, back fusion. Patient has a history of chronic pain he takes morphine sulfate IR 15 mg he filled 90 of these on September 11, 2014. He took one at 11:00 PM last night. Timing/Duration: other (symptoms since early last night) Activities at Onset: none Quality: sharpness Abdominal Pain Onset Location: flank (left flank radiating to suprapubic region) Severity of Pain-Max: moderate Severity of Pain-Current: moderate Modifying Factors: Improves With: nothing Associated Symptoms: back (left flank pain radiating to suprapubic region) Previous symptoms: same symptoms as today (patient with a 3 mm stone on the right July of this year) Allergies/Adverse Reactions: amitriptyline Allergy (Verified 10/29/16 10:24) hydromorphone HCl [From Dilaudid] Allergy (Verified 10/10/17 02:23) zolpidem tartrate [From Ambien] Allergy (Verified 10/29/16 10:24) Home Medications: Calcium Carbonate/Vitamin D3 [Vitamin D-3 400 Units Tablet] 1 each PO DAILY 10/25 [History] Dicyclomine HCl [Bentyl] 10 mg PO DAILY PRN 10/14/16 [History] Lisinopril 5 mg [Zestril 5 MG] 5 mg PO DAILY 10/14/16 [History] Vitamin B Complex 1 each PO DAILY 10/14/16 [History] Pravastatin Sodium 20 mg PO HS 10/29/16 [History] Morphine Sulfate Ir 15 mg [Msir 15 mg] 15 mg PO Q8H PRN PRN 06/11/17 [ History] Omeprazole 20 MG [Prilosec 20 mg] 1 cap PO DAILY PRN PRN 06/11/17 [History] metHOTREXate sodium [Methotrexate] 5 tab PO WEEKLY 06/11/17 [History] Leucovorin Calcium 5 mg PO DAILY 07/13/17 [History] Sulfasalazine [Sulfasalazine Dr] 500 mg PO QID 09/08/17 [History] Hx Tetanus, Diphtheria Vaccination/Date Given: Yes Hx Influenza Vaccination/Date Given: Yes Hx Pneumococcal Vaccination/Date Given: Yes - Review of Systems Constitutional: No Fever, No Chills Eyes: No Symptoms Ears, Nose, & Throat: No Symptoms Respiratory: No Cough, No Dyspnea Cardiac: No Chest Pain, No Edema, No Syncope Abdominal/Gastrointestinal: Other (lleft flank pain radiating to suprapubic region) Genitourinary Symptoms: Flank Pain (Left flank pain) Musculoskeletal: Back Pain (left flank pain) Skin: No Rash Neurological: No Dizziness, No Focal Weakness, No Sensory Changes Psychological: No Symptoms Endocrine: No Symptoms All Other Systems: Reviewed and Negative - Past Medical History Pertinent Past Medical History: Yes Neurological History: No Pertinent History Cardiac History: High Cholesterol, Hypertension Respiratory History: No Pertinent History Endocrine Medical History: No Pertinent History Musculoskeletal History: Arthritis, Degenerative Disk Disease GI Medical History: Colitis History: No Pertinent History Psycho-Social History: Depression Male Reproductive Disorders: No Pertinent History Other Medical History: ulcerative colitis dx 4 mos ago - Past Surgical History Past Surgical History: Yes Musculoskeletal: Orthopedic Surgery Other Surgical History: back surgery fused C 4- 5 - Social History Smoking Status: Former smoker How long have you smoked: 45 Exposure to second hand smoke: No Drug Use: none Patient Lives Alone: No - Nursing Vital Signs Nursing Vital Signs: Initial Vital Signs Temperature 97.7 F 10/10/17 02:14 Pulse Rate 98 H 10/10/17 02:14 Blood Pressure 143/97 10/10/17 02:14 O2 Sat by Pulse Oximetry 92 L 10/10/17 02:14 Pain Scale Pain Intensity 3 - Physical Exam General Appearance: moderate distress, other (well-developed well-nourished white moderate distress, Alert oriented 3) Eye Exam: PERRL/EOMI, eyes nml inspection, other (fundi are unremarkable) Ears, Nose, Throat Exam: normal ENT inspection, pharynx normal, moist mucous membranes Neck Exam: normal inspection, non-tender, supple, full range of motion Respiratory Exam: normal breath sounds, lungs clear, No respiratory distress Cardiovascular Exam: regular rate/rhythm, normal heart sounds Gastrointestinal/Abdomen Exam: soft, normal bowel sounds, tenderness (mild the left lower quadrant tenderness with palpation) Back Exam: CVA tenderness (left flank tenderness with palpatio) Extremity Exam: normal inspection, normal range of motion, pelvis stable Neurologic Exam: alert, oriented x 3, cooperative, 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 Bilateral punctate nonobstructive renal calyceal stones.2. Left ureteral vesicle junction 3.4 mm calculus with mild hydronephrosis and hydroureter.) Ordered Tests: Active Orders 24 hr Category Date Time Status IV Insertion STAT Care 10/10/17 02:23 Active ABDOMEN AND PELVIS W/0 CONTRAS [CT] Stat Exams 10/10/17 02:24 Taken AMYLASE Stat Lab 10/10/17 02:30 Completed CBC W DIFF Stat Lab 10/10/17 02:30 Completed CMP Stat Lab 10/10/17 02:30 Completed CULTURE,URINE Stat Lab 10/10/17 04:51 Received LIPASE Stat Lab 10/10/17 02:30 Completed UA W/ MICROSCOPIC Stat Lab 10/10/17 04:51 Completed Medication Summary Discontinued Medications Generic Name Dose Route Start Last Admin Trade Name Freq PRN Reason Stop Dose Admin Sodium Chloride 1,000 mls @ 999 mls/hr 10/10/17 02:23 10/10/17 03:50 Sodium Chloride 0.9% 1000 Ml IV 10/10/17 03:23 Infused .Q1H1M STA Infusion Sodium Chloride Confirm 10/10/17 02:28 Sodium Chloride 0.9% 1000 Ml Administered 10/10/17 02:29 Dose 1,000 mls @ ud .ROUTE .STK-MED ONE Sodium Chloride 1,000 mls @ 999 mls/hr 10/10/17 03:39 10/10/17 03:43 Sodium Chloride 0.9% 1000 Ml IV 10/10/17 04:39 999 mls/hr .Q1H1M STA Administration Sodium Chloride Confirm 10/10/17 03:41 Sodium Chloride 0.9% 1000 Ml Administered 10/10/17 03:42 Dose 1,000 mls @ ud .ROUTE .STK-MED ONE Ketorolac Tromethamine 30 mg 10/10/17 02:23 10/10/17 02:37 Toradol 30 Mg Injection IV 10/10/17 02:24 30 mg STAT ONE Administration Ketorolac Tromethamine Confirm 10/10/17 02:28 Toradol 30 Mg Injection Administered 10/10/17 02:29 Dose 30 mg .ROUTE .STK-MED ONE Morphine Sulfate 4 mg 10/10/17 02:41 10/10/17 02:44 Morphine Sulfate 4 Mg Inj IV 10/10/17 02:42 4 mg STAT ONE Administration Morphine Sulfate Confirm 10/10/17 02:42 Morphine Sulfate 4 Mg Inj Administered 10/10/17 02:43 Dose 4 mg .ROUTE .STK-MED ONE Morphine Sulfate 4 mg 10/10/17 03:39 10/10/17 03:43 Morphine Sulfate 4 Mg Inj IV 10/10/17 03:40 4 mg STAT ONE Administration Morphine Sulfate Confirm 10/10/17 03:41 Morphine Sulfate 4 Mg Inj Administered 10/10/17 03:42 Dose 4 mg .ROUTE .STK-MED ONE Ondansetron HCl 4 mg 10/10/17 02:23 10/10/17 02:37 Zofran 4 Mg/2 Ml Vial IV 10/10/17 02:24 4 mg STAT ONE Administration Ondansetron HCl Confirm 10/10/17 02:27 Zofran 4 Mg/2 Ml Vial Administered 10/10/17 02:28 Dose 4 mg .ROUTE .STK-MED ONE Lab/Rad Data: Laboratory Result Diagrams 10/10/17 02:30 10/10/17 02:30 Laboratory Results 10/10/17 10/10/17 10/10/17 Range/Units 04:51 02:30 02:30 WBC 8.0 (4.0-10.5) K/mm3 RBC 4.00 L (4.1-5.6) M/mm3 Hgb 12.8 (12.5-18.0) gm/dl Hct 37.9 L (42-50) % MCV 94.8 (78-100) fl MCH 32.0 (26-32) pg MCHC 33.8 (32-36) g/dl RDW 13.6 (11.5-14.0) % Plt Count 181 (150-450) K/mm3 MPV 10.2 H (6-9.5) fl Gran % 54.8 (36.0-66.0) % Eos # (Auto) 0.35 (0-0.5) Absolute Lymphs (auto) 2.40 (1.0-4.6) Absolute Monos (auto) 0.87 (0.0-1.3) Lymphocytes % 29.9 (24.0-44.0) % Monocytes % 10.8 (0.0-12.0) % Eosinophils % 4.4 (0.00-5.0) % Basophils % 0.1 (0.0-0.4) % Absolute Granulocytes 4.39 (1.4-6.9) Basophils # 0.01 (0-0.4) Sodium 139 (137-145) mmol/L Potassium 4.0 (3.5-5.1) mmol/L Chloride 103 (98-107) mmol/L Carbon Dioxide 27 (22-30) mmol/L Anion Gap 12.2 (5-15) MEQ/L BUN 20 (9-20) mg/dL Creatinine 0.86 (0.66-1.25) mg/dL Estimated GFR > 60.0 ML/MIN Glucose 132 H (74-106) mg/dL Calcium 9.1 (8.4-10.2) mg/dL Total Bilirubin 0.40 (0.2-1.3) mg/dL AST 31 (17-59) U/L ALT 22 (0-50) U/L Alkaline Phosphatase 44 (38-126) U/L Serum Total Protein 7.3 (6.3-8.2) g/dL Albumin 4.6 (3.5-5.0) g/dL Amylase 81 (30-110) U/L Lipase 99 (23-300) U/L Ur Collection Type VOID Urine Color YELLOW (YELLOW) Urine Appearance CLEAR (CLEAR) Urine pH 6.0 (5-6) Ur Specific [place] 1.020 (1.005-1.025) Urine Protein NEGATIVE (Negative) Urine Ketones NEGATIVE (NEGATIVE) Urine Blood 250 (0-5) Ajay/ul Urine Nitrite NEGATIVE (NEGATIVE) Urine Bilirubin NEGATIVE (NEGATIVE) Urine Urobilinogen NORMAL (0-1) mg/dL Ur Leukocyte Esterase TRACE (NEGATIVE) Urine Microscopic RBC 25-50 (0-2) /HPF Urine Microscopic WBC 10-15 (0-5) /HPF Ur Epithelial Cells FEW (FEW) /HPF Urine Bacteria FEW (NEGATIVE) /HPF Urine Mucus MANY (NEGATIVE) /HPF Urine Culture Reflexed YES (NO) Urine Glucose NEGATIVE (NEGATIVE) mg/dL Specimen Received 10/10/17 0455 - Progress Progress: improved Progress Note: 10/10/17 05:21 61-year-old white male arrives with complaint of pain and left flank radiating to his left lower abdomen suprapubic region patient with a 3 mm urolithiasis at the left UVJ. Feeling better after 2 L of fluids and 30 mg of Toradol IV and 4 mg of morphine IV 2. Patient has had kidney stones in the past and has seen Dr. Bobo. Patient is on morphine at home. 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 He is to follow-up with either his family doctor or Dr. Bobo. - Departure Time of Disposition: 05:23 Departure Disposition: Home Clinical Impression: Left flank pain Urolithiasis Qualifiers: Urinary calculus location: ureter Qualified Code(s): N20.1 - Calculus of ureter Condition: Fair Critical Care Time: No Referrals: PAIGE PALUMBO [Primary Care Provider] - Instructions: Kidney Stones (DC) Additional Instructions: Return home. Plenty of fluids. Strain all urine. Pain medication as prescribed by your family doctor or pain numerical control programmer. Follow-up with your family doctor or Dr. Bobo call tomorrow to schedule an appointment. Return for acute distress or for severe symptoms.
[2017-10-10 02:34] LABS: BASOPHIL % 0.1 % (0.0-0.4); Basophil (Absolute #) 0.01 (0-0.4); Eosinophil % 4.4 % (0.00-5.0); Eosinophil (Absolute #) 0.35 (0-0.5); Granulocyte Absolute (ANC) 4.39 (1.4-6.9); Granulocytes % 54.8 % (36.0-66.0); Hematocrit 37.9 % (42-50); Hemoglobin 12.8 gm/dl (12.5-18.0); Lymphocytes % 29.9 % (24.0-44.0); Mean Cell Volume 94.8 fl (78-100); Mean Corpuscular Hgb Concent. 33.8 g/dl (32-36); Mean Platelet Volume 10.2 fl (6-9.5); Monocyte (Absolute #) 0.87 (0.0-1.3); Monocytes % 10.8 % (0.0-12.0); Platelet Count 181 K/mm3 (150-450); Red Cell Distribution Width 13.6 % (11.5-14.0)
[2017-10-10] MEDS ORDERED: MORPHINE SULFATE 4 MG INJ IV ONE ×2 (02:41→03:39)
[2017-10-10] MEDS ORDERED: MORPHINE SULFATE 4 MG INJ ONE ×2 (02:42→03:41)
[2017-10-10 02:53] LABS: ALBUMIN 4.6 g/dL (3.5-5.0); ALKALINE PHOSPHATASE 44 U/L (38-126); AMYLASE 81 U/L (30-110); ANION GAP 12.2 MEQ/L (5-15); BLOOD UREA NITROGEN 20 mg/dL (9-20); CHLORIDE 103 mmol/L (98-107); Calcium 9.1 mg/dL (8.4-10.2); Carbon Dioxide 27 mmol/L (22-30); Creatinine 1 0.86 mg/dL (0.66-1.25); Glucose 132 mg/dL (74-106); LIPASE 99 U/L (23-300); SGOT/AST 31 U/L (17-59); SGPT/ALT 22 U/L (0-50); SODIUM 139 mmol/L (137-145); Total Protein 7.3 g/dL (6.3-8.2)
[2017-10-10 05:01] LABS: Appearance CLEAR (CLEAR); Bilirubin NEGATIVE (NEGATIVE); Glucose NEGATIVE (NEGATIVE); Ketones NEGATIVE (NEGATIVE); Leukocyte Esterase TRACE (NEGATIVE); Nitrite NEGATIVE (NEGATIVE); Protein,Urine Dip NEGATIVE (Negative); Urobilinogen NORMAL mg/dL (0-1)
[2017-10-10 05:02] LABS: Bacteria FEW /HPF (NEGATIVE); Blood 250 Ery/ul (0-5); Epithelial Cells FEW /HPF (FEW); Mucus MANY /HPF (NEGATIVE); RBC 25-50 /HPF (0-2)
[2017-10-10 07:21] VITALS: BP 90/54; PULSE 71; O2SAT 94
--- NOTE | 2017-10-10 09:41 | XRAY ---
Indication: Left flank pain. History kidney stone. Multiple contiguous axial images obtained through the abdomen and pelvis without contrast using renal stone protocol. Comparison: August 01, 2017. Lung bases demonstrates mild bibasilar dependent atelectasis with stable right base bullae and tiny left posterior gutter calcified granuloma. Heart is not enlarged. New 3-4 mm distal left UVJ calculus. The more proximal left ureter is prominent and there is mild/moderate hydronephrosis with perinephric stranding favoring partial obstruction. Again additional bilateral renal micro-calculi. Noncontrasted stomach and bowel loops appear nonobstructed. Normal appendix. No free fluid/air. Remaining liver, gallbladder, pancreas, spleen, adrenal glands, kidneys, ureters, and bladder appear unremarkable for noncontrast exam. Minimal scattered aortoiliac calcifications without AAA. Osseous structures intact again with minimal degenerative changes throughout the spine. Stable bilateral fatty inguinal hernias. Impression: 1. New 3-4 mm left UVJ calculus producing partial obstruction. Again incidental bilateral micro-calculi. 2. Stable bilateral fatty inguinal hernias. Comment: Preliminary interpretation was made by [facility]. No discrepancy. CT DI 23.57
== END 2017-10-10 07:45 | disposition left against medical advice (07) ==
LOC: ED 02:09
DX: N20.1 Calculus of ureter (principal); Z87.442 Personal history of urinary calculi; R10.9 Unspecified abdominal pain; Z79.899 Other long term (current) drug therapy
CPT/HCPCS: 36000; 36415; 74176; 80053; 81000; 82150; 83690; 85025; 87086; 96360; 96361; 96374; 96375; 96376; 99284; J1885; J2270; J2405

== ENCOUNTER 2018-04-07 10:34 | Day surgery (SDC) | payer MEDICARE, OTHER ==
[2018-04-07] MEDS ORDERED: Depo-Medrol 40 MG/ML IM ONE (10:35)
[2018-04-07] MEDS ORDERED: LIDOCAINE HCL 2% 100 MG/5 ML IJ ONE (10:35)
[2018-04-07] MEDS ORDERED: DIPRIVAN 200 MG/20 ML IV ONE (10:35)
[2018-04-07] MEDS ORDERED: Lactated Ringers 1,000 ML IV ONE (14:52)
--- NOTE | 2018-04-07 16:01 | XRAY ---
9 seconds fluoroscopy time in surgery fro bilateral L3-S1 MBB.
--- NOTE | 2018-04-08 04:34 | XRAY ---
Indication: Bilateral L3-S1 MBB. Intraoperative fluoroscopy was provided for 9 seconds. A posterior digital C-arm image of the mid and lower lumbar spine demonstrate posterior spinal needle tips projected over the expected course of the left and right L3-S1 nerve roots. Correlate with intraoperative findings/report.
== END 2018-04-07 13:10 | disposition home or self-care (01) ==
LOC: SDC-PAIN 10:34
PROVIDERS: ATTEND Psychiatry & Neurology Pain Medicine
DX: M54.5 Low back pain (principal)
CPT/HCPCS: 64493; 64494; 64495; 72020; 76000; J1030; J2704

== ENCOUNTER 2018-04-28 08:32 | Day surgery (SDC) | payer MEDICARE, OTHER ==
[2018-04-28] MEDS ORDERED: Marcaine 0.5% SDV 10 ML IJ ONE (08:33)
[2018-04-28] MEDS ORDERED: Depo-Medrol 40 MG/ML IM ONE (08:33)
[2018-04-28] MEDS ORDERED: DIPRIVAN 200 MG/20 ML IV ONE (08:33)
--- NOTE | 2018-04-28 10:35 | XRAY ---
14 seconds fluoroscopy time in surgery for bilateral L3-S1 MBB.
[2018-04-28] MEDS ORDERED: Lactated Ringers 1,000 ML IV ONE (14:45)
--- NOTE | 2018-04-29 14:32 | XRAY ---
Indication: Bilateral L3-S1 MBB. Intraoperative fluoroscopy was provided for 14 seconds. Single digital spot image submitted for interpretation demonstrates posterior spinal needle tips projecting over the expected course of the left and right L3-S1 nerve roots. Correlate with intraoperative findings/report.
== END 2018-04-28 10:25 | disposition home or self-care (01) ==
LOC: SDC-PAIN 08:32
PROVIDERS: ATTEND Psychiatry & Neurology Pain Medicine
DX: M54.5 Low back pain (principal)
CPT/HCPCS: 64493; 64494; 64495; 72020; 77003; J1030; J2704

== ENCOUNTER 2018-07-28 09:58 | Day surgery (SDC) | payer MEDICARE, OTHER ==
[2018-07-28] MEDS ORDERED: DIPRIVAN 200 MG/20 ML IV ONE (09:59)
[2018-07-28] MEDS ORDERED: Depo-Medrol 40 MG/ML IM ONE (09:59)
[2018-07-28] MEDS ORDERED: LIDOCAINE HCL 2% 100 MG/5 ML IJ ONE (09:59)
[2018-07-28] MEDS ORDERED: Marcaine 0.5% SDV 10 ML IJ ONE (09:59)
[2018-07-28] MEDS ORDERED: Ketamine HCl 50 MG/ML IJ ONE (09:59)
[2018-07-28] MEDS ORDERED: Xylocaine 1% Vial 30 ML PF IJ ONE (09:59)
[2018-07-28] MEDS ORDERED: Lactated Ringers 1,000 ML IV ONE (14:24)
--- NOTE | 2018-07-28 16:12 | XRAY ---
Indication: Right L3-S1 MBB. Intraoperative fluoroscopy was provided for 29 seconds. 2 digital spot image submitted for interpretation demonstrates posterior needle tips in the expected region of the right L3-S1 nerve roots. Correlate with intraoperative findings/report.
--- NOTE | 2018-07-28 16:14 | XRAY ---
29 seconds of fluoroscopy was used in surgery for right L3-L4, L4-L5, L5-S1 MBB.
== END 2018-07-28 12:05 | disposition home or self-care (01) ==
LOC: SDC-PAIN 09:58
PROVIDERS: ATTEND Psychiatry & Neurology Pain Medicine
DX: M47.816 Spondylosis without myelopathy or radiculopathy, lumbar region (principal); I10 Essential (primary) hypertension; J44.9 Chronic obstructive pulmonary disease, unspecified; L40.50 Arthropathic psoriasis, unspecified; Z79.899 Other long term (current) drug therapy
CPT/HCPCS: 64635; 64636; 72100; 77002; J1030; J2001; J2704

== ENCOUNTER 2018-08-04 10:59 | Day surgery (SDC) | payer MEDICARE, OTHER ==
[2018-08-04] MEDS ORDERED: Depo-Medrol 40 MG/ML IM ONE (11:00)
[2018-08-04] MEDS ORDERED: Ketamine HCl 50 MG/ML IJ ONE (11:00)
[2018-08-04] MEDS ORDERED: DIPRIVAN 200 MG/20 ML IV ONE (11:00)
[2018-08-04] MEDS ORDERED: Lactated Ringers 1,000 ML IV ONE (13:04)
--- NOTE | 2018-08-04 13:56 | XRAY ---
42 seconds fluoroscopy time in surgery for left L4-S1 RFA.
--- NOTE | 2018-08-04 13:59 | XRAY ---
Indication: Left L4-S1 RFA. Intraoperative fluoroscopy was provided for 42 seconds. 3 digital spot images submitted for interpretation demonstrates posterior spinal needle tips projecting over the expected course of the left L3-S1 nerve roots. Correlate with intraoperative findings/report.
== END 2018-08-04 13:02 | disposition home or self-care (01) ==
LOC: SDC-PAIN 10:59
PROVIDERS: ATTEND Psychiatry & Neurology Pain Medicine
DX: M47.816 Spondylosis without myelopathy or radiculopathy, lumbar region (principal); Z79.899 Other long term (current) drug therapy; I10 Essential (primary) hypertension; J44.9 Chronic obstructive pulmonary disease, unspecified
CPT/HCPCS: 72020; 77002; J1030; J2704

== ENCOUNTER 2019-12-20 10:57 | Emergency (ER) | payer MEDICARE, OTHER ==
[2019-12-20] MEDS ORDERED: TORAdol 30 mg Injection IM ONE (11:17)
[2019-12-20] MEDS ORDERED: TORAdol 30 mg Injection ONE (11:20)
--- NOTE | 2019-12-20 11:20 | ERPHSYRPT ---
- History of Present Illness Time Seen by Provider: 12/20/19 11:10 Source: patient Exam Limitations: no limitations Patient Subjective Stated Complaint: Shoulder/Rib pain Triage Nursing Assessment: Patient ambulated back to ED and transferred self to bed. Patient A+O X3. Patient's skin pink, warm and dry. Patient states he was standing on ladder taking siding off of his home when the ladder slipped and he fell 2-3 feet down landing with his left arm out on metal. Patient complains of contant aching with occasional sharp pain to left shoulder and rib area 5, 6, and 7. Patient has small abrasion noted to left side of ribs. Lungs clear a/p elkin. Patient states it is hard for him to take a deep breath. Physician History: Patient ambulated back to ED and transferred self to bed. Patient A+O X3. Patient's skin pink, warm and dry. Patient states he was standing on ladder taking siding off of his home when the ladder slipped and he fell 2-3 feet down landing with his left arm out on metal. Patient complains of contant aching with occasional sharp pain to left shoulder and rib area 5, 6, and 7. Patient has small abrasion noted to left side of ribs. Lungs clear a/p elkin. Patient states it is hard for him to take a deep breath. Occurred: just prior to arrival Reason for Fall: unknown (Letter started slide and tip.) Injuries/Pain Location: upper extremity Loss of Consciousness: no loss of consciousness Quality: aching Severity of Pain-Max: moderate Severity of Pain-Current: mild Modifying Factors: Improves With: movement, rest Associated Symptoms (Fall): No abdominal pain, No back pain, No confusion, No chest pain, No dizziness, No extremity injury, No headache, No lightheadedness, No muscle spasms, No nausea, No neck pain, No ringing in ears, No seizures, No shortness of breath, No slurred speech, No trouble walking Allergies/Adverse Reactions: amitriptyline Allergy (Verified 12/20/19 11:07) hydromorphone HCl [From Dilaudid] Allergy (Verified 12/20/19 11:07) zolpidem tartrate [From Ambien] Allergy (Verified 12/20/19 11:07) Home Medications: Calcium Carbonate/Vitamin D3 [Vitamin D-3 400 Units Tablet] 1 each PO DAILY 10/14/16 [History] Dicyclomine HCl [Bentyl] 10 mg PO DAILY PRN 10/14/16 [History] Lisinopril 5 mg [Zestril 5 MG] 5 mg PO DAILY 10/14/16 [History] Vitamin B Complex 1 each PO DAILY 10/14/16 [History] Pravastatin Sodium 20 mg PO HS 10/29/16 [History] Morphine Sulfate Ir 15 mg [Msir 15 mg] 15 mg PO Q8H PRN PRN 06/11/17 [History] Omeprazole 20 MG [Prilosec 20 mg] 1 cap PO DAILY PRN PRN 06/11/17 [History] metHOTREXate sodium [Methotrexate] 5 tab PO WEEKLY 06/11/17 [History] Leucovorin Calcium 5 mg PO DAILY 07/13/17 [History] Sulfasalazine [Sulfasalazine Dr] 500 mg PO QID 09/08/17 [History] Hx Tetanus, Diphtheria Vaccination/Date Given: Yes Hx Influenza Vaccination/Date Given: Yes Hx Pneumococcal Vaccination/Date Given: Yes Immunizations Up to Date: Yes Travel Risk - International Travel Have you traveled outside of the country in past 3 weeks: No - Coronavirus Screening Are you exhibiting any of the following symptoms?: No Close contact with a COVID-19 positive Pt in past 14-21 Days: No - Review of Systems Constitutional: No Symptoms, No Fever, No Chills Eyes: No Symptoms Ears, Nose, & Throat: No Symptoms Respiratory: No Symptoms, No Cough, No Dyspnea Cardiac: No Symptoms, No Chest Pain, No Edema, No Syncope Abdominal/Gastrointestinal: No Symptoms, No Abdominal Pain, No Nausea, No Vomiting, No Diarrhea Genitourinary Symptoms: No Symptoms, No Dysuria Musculoskeletal: No Symptoms, No Back Pain, No Neck Pain Skin: No Symptoms, No Rash Neurological: No Symptoms, No Dizziness, No Focal Weakness, No Sensory Changes Psychological: No Symptoms Endocrine: No Symptoms Hematologic/Lymphatic: No Symptoms Immunological/Allergic: No Symptoms All Other Systems: Reviewed and Negative - Past Medical History Pertinent Past Medical History: Yes Neurological History: No Pertinent History Cardiac History: High Cholesterol, Hypertension Respiratory History: No Pertinent History Endocrine Medical History: No Pertinent History Musculoskeletal History: Arthritis, Degenerative Disk Disease GI Medical History: Colitis History: No Pertinent History Psycho-Social History: Depression Male Reproductive Disorders: No Pertinent History Other Medical History: ulcerative colitis dx 4 mos ago - Past Surgical History Past Surgical History: Yes Musculoskeletal: Orthopedic Surgery Other Surgical History: back surgery fused C 4- 5 - Social History Smoking Status: Former smoker How long have you smoked: 45 Exposure to second hand smoke: No Drug Use: none Patient Lives Alone: No - Nursing Vital Signs Nursing Vital Signs: Initial Vital Signs Temperature 98.0 F 12/20/19 11:07 Pulse Rate 98 H 12/20/19 11:07 Respiratory Rate 18 12/20/19 11:07 Blood Pressure 154/92 12/20/19 11:07 O2 Sat by Pulse Oximetry 97 12/20/19 11:07 Pain Scale Pain Intensity 10 - Tiarra Coma Score Best Eye Response (Manor): (4) open spontaneously Best Verbal Response (Tiarra): (5) oriented Best Motor Response (Man[place]): (6) obeys commands Manor Total: 15 - Physical Exam General Appearance: no apparent distress, alert Head Injury: no evidence of injury Eye Exam: PERRL/EOMI ENT Exam: airway nml Neck Exam: supple, full range of motion (No neck pain. Cervical spine cleared clinically.), normal inspection, No tenderness Respiratory/Chest Exam: normal breath sounds, No chest tenderness, No respiratory distress Cardiovascular Exam: normal heart sounds, regular rate/rhythm Gastrointestinal Exam: soft, No tenderness, No distention, No guarding, No ecchymosis Back Exam: normal inspection, No vertebral tenderness Extremity Exam: normal inspection (Patient guarding left shoulder. Range of motion of left shoulder limited due to pain. Overlying soft tissue intact. Extremity neurovascular intact distally. Compartments are soft. Cap refill less than 2 seconds.), pelvis stable, No deformities Neurologic Exam: alert, oriented x 3, cooperative, sensation nml, other (Neurological exam within normal limits.), No motor deficits Skin Exam: normal color, warm, dry SpO2 Interpretation: normal SpO2: 97 O2 Delivery: Room Air - Course Nursing assessment & vital signs reviewed: Yes - Radiology Exams Ribs X-ray Interpretation: Teleradiologist Report (No fracture dislocations) Chest X-ray Interpretation: Teleradiologist Report (No pneumothorax or acute pathology observed.) Shoulder X-ray Interpretation: Teleradiologist Report (Suspected fracture. CT advised for definitive diagnosis.) - CT Exams Upper Extremity CT Interpretation: Tele-radiologist Report (CT reveals a mildly comminuted greater tuberosity fracture.) Ordered Tests: Active Orders 24 hr Category Date Time Status CHEST 1 VIEW (PORTABLE) Stat Exams 12/20/19 11:13 Completed RIBS UNILATERAL Stat Exams 12/20/19 11:13 Completed SHOULDER Stat Exams 12/20/19 11:13 Completed UPPER EXTREMITY W/O CONTRAST [CT] Stat Exams 12/20/19 12:36 Completed Medication Summary Discontinued Medications Generic Name Dose Route Start Last Admin Trade Name Leobardo PRN Reason Stop Dose Admin Ketorolac Tromethamine 30 mg 12/20/19 11:17 12/20/19 11:21 Toradol 30 Mg Injection IM 12/20/19 11:18 30 mg STAT ONE Administration Ketorolac Tromethamine Confirm 12/20/19 11:20 Toradol 30 Mg Injection Administered 12/20/19 11:21 Dose 30 mg .ROUTE .STBLAZER & FLIP FLOPS-MED ONE - Progress Progress: improved Progress Note: 12/20/19 13:59 Patient reassessed. Pain improved. CT reveals fracture of the greater tuberosity left shoulder. Left shoulder immobilizer placed. Pain well controlled. No other injuries observed or reported. Will discharge. Patient to follow-up in orthopedic clinic tomorrow morning. Plan of care discussed with patient. He agrees to follow-up as discussed. Patient voices no other complaints or concerns at this time. Counseled pt/family regarding: diagnosis, need for follow-up, rad results - Departure Departure Disposition: Home Clinical Impression: Fall, Shoulder fracture, left Condition: Stable Critical Care Time: No Referrals: CODY DYSON MD [Primary Care Provider] - Additional Instructions: Discharge/Care Plan STANLEY LUTZ was seen on 12/20/19 in the Emergency Room. The patient was counseled regarding Diagnosis,Lab results, Imaging studies, need for follow up and when to return to the Emergency Room. Prescriptions given: Discharge Note I have spoken with the patient and/or caregivers. I have explained the patient's condition, diagnosis and treatment plan based on the information available to me at this time. I have answered the patient's and/or caregiver's questions and addressed any concerns. The patient and/or caregivers have as good understanding of the patient's diagnosis, condition and treatment plan as can be expected at this point. The vital signs have been stable. The patient's condition is stable and appropriate for discharge from the emergency department. The patient will pursue further outpatient evaluation with the primary care physician or other designated or consulting physician as outlined in the discharge instructions. The patient and/or caregivers are agreeable to this plan of care and follow-up instructions have been explained in detail. The patient and/or caregivers have received these instruction. The patient/and or caregivers are aware that any significant change in condition or worsening of symptoms should prompt an immediate return to this or the closest emergency department or call 911. Outpatient Orders: Ortho Referral Time Frame: 1 Day, Facility: [facility]. [facility]osp, Location: [facility]
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
--- NOTE | 2019-12-20 12:39 | XRAY ---
Exam: 4 views of the left rib cage from 12/20/2019. Comparison: None. Indication: Patient fell, complains of left-sided rib pain since then. Findings: 2 AP images, an LPO image, and an BEATRIS were obtained. There are 12 pairs of thoracic ribs. I see no acute left rib fracture or cortical step-off to suggest a displaced fracture. No pneumothorax or pleural effusion is seen. There are mild increased interstitial markings at the left lung base which may correspond to mild left basilar linear atelectasis or scarring. No other focal bone lesion is seen within the left rib cage. I again see evidence of prior anterior C6-C7 surgical fusion. Impression: 1. No acute left-sided rib fracture is seen. 2. Mild increased transverse linear markings at the left lung base, probably due to mild left basilar linear atelectasis or interstitial scarring. The remainder of the left lung field appears clear.
--- NOTE | 2019-12-20 12:45 | XRAY ---
Exam: AP portable chest radiograph from 12/20/2019. Comparison: AP upright portable chest film from 10/29/2016. Indication: Patient fell. Findings: The transverse heart size is normal. The adrianna and mediastinal structures appear unremarkable. I again see mild increased markings at the left lung base near the left hemidiaphragm representing no change from 10/29/2016. This may be due to chronic linear atelectasis or fibrotic scarring. There is an undulating contour of the right hemidiaphragm. There is also suggestion of minimal plate atelectasis at the posterior lateral right lung base. The remainder of the lung machuca appears clear. There is no pneumothorax or pleural effusion. There is evidence of prior C6-C7 anterior surgical fusion. There is evidence of moderate arthropathy of the right acromioclavicular joint with inferior marginal spurring. Impression: 1. Mild increased interstitial markings are seen at both lung bases, left greater than right. The findings at the left lung base appear similar to 10/29/2016. Therefore, this likely represents mild chronic linear platelike atelectasis or fibrotic scarring. 2. No other acute cardiopulmonary disease is seen.
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
[2019-12-20 14:22] VITALS: BP 121/79; PULSE 84; O2SAT 99
== END 2019-12-20 14:32 | disposition home or self-care (01) ==
LOC: ED 10:57
DX: S42.92XA Fracture of left shoulder girdle, part unspecified, initial encounter for closed fracture (principal); M25.512 Pain in left shoulder; S20.312A Abrasion of left front wall of thorax, initial encounter; W11.XXXA Fall on and from ladder, initial encounter; Y93.89 Activity, other specified; Y92.89 Other specified places as the place of occurrence of the external cause; Z79.899 Other long term (current) drug therapy; I10 Essential (primary) hypertension
CPT/HCPCS: 71045; 71100; 73030; 73200; 96372; 99284; J1885

== ENCOUNTER 2021-12-21 15:39 | Emergency (ER) | payer MEDICARE, OTHER ==
[2021-12-21] MEDS ORDERED: Hydromorphone 1 mg/ml Injection IM ONE (15:53)
[2021-12-21] MEDS ORDERED: MORPHINE SULFATE 4 MG INJ IM ONE (15:54)
[2021-12-21] MEDS ORDERED: MORPHINE SULFATE 4 MG INJ ONE (15:57)
[2021-12-21] MEDS ORDERED: Ativan 2 MG/1 ML VIAL IV ONE (16:24)
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
[2021-12-21 17:42] VITALS: BP 141/77; PULSE 88; O2SAT 97
--- NOTE | 2021-12-21 20:39 | XRAY ---
Indication: Severe back pain following heavy lifting. Multiple contiguous axial images obtained through the pelvis with special attention to the osseous structures. Comparison: October 10, 2017 No acute fracture, dislocation, or suspicious bony lesions. SI joints are bilaterally symmetric. Visualized noncontrasted soft tissues again demonstrates minimal scattered aortoiliac calcifications. No free fluid/air. Impression: Again arteriosclerotic disease. Remaining CT pelvis remains negative. Common: Preliminary interpretation made by [facility]. No critical discrepancy.
--- NOTE | 2021-12-21 20:43 | XRAY ---
Indication: Severe back pain following heavy lifting. Multiple contiguous axial images obtained through the lumbar spine. Sagittal and coronal reformatted images obtained. Comparison: October 10, 2017 There remains minimal/mild multilevel broad-based disc bulge. No large disc herniation or spinal canal stenosis. Facets are symmetric. Stable small left L2 pedicle bone island and mild scattered aortoiliac calcifications. There are again a few nonobstructing bilateral renal punctate calculi. Remaining visualized noncontrasted soft tissues are unremarkable. Impression: Grossly stable multilevel degenerative disc disease better evaluated with outpatient MRI. Again incidental arteriosclerotic disease, L2 bone island, and nonobstructing bilateral renal micro-calculi. Common: Preliminary interpretation made by [facility]. No critical discrepancy.
== END 2021-12-21 17:43 | disposition home or self-care (01) ==
LOC: ED 15:39
DX: S39.012A Strain of muscle, fascia and tendon of lower back, initial encounter (principal); X50.0XXA Overexertion from strenuous movement or load, initial encounter; E78.5 Hyperlipidemia, unspecified; I10 Essential (primary) hypertension; Z79.899 Other long term (current) drug therapy; Z79.52 Long term (current) use of systemic steroids
CPT/HCPCS: 72131; 72192; 96372; 99283; J2270

== ENCOUNTER 2022-04-16 09:36 | Emergency (ER) | payer MEDICARE, OTHER ==
[2022-04-16 09:56] VITALS: BP 146/92; PULSE 60; O2SAT 96
[2022-04-16] MEDS ORDERED: SUBLIMAZE 100 MCG/2 ML IV ONE (09:57)
[2022-04-16] MEDS ORDERED: Sodium Chloride 0.9% 1000 ML 1,000 ML IV STA (09:57)
[2022-04-16] MEDS ORDERED: Zofran 4 MG/2 ML VIAL IV ONE (09:57)
[2022-04-16 10:18] LABS: Appearance CLEAR (CLEAR); Bilirubin NEGATIVE (NEGATIVE); Dipstick done @ ? MAIN LAB; Glucose NEGATIVE (NEGATIVE); Ketones NEGATIVE (NEGATIVE); Nitrite NEGATIVE (NEGATIVE); Protein,Urine Dip NEGATIVE (Negative); RBC MODERATE Ery/ul (0-5); Urobilinogen 0.2 mg/dL (0-1)
[2022-04-16 10:19] LABS: RBC 0-2 /HPF (0-2)
[2022-04-16 10:22] LABS: Basophil (Absolute #) 0.03 x10^3/uL (0-0.4); Eosinophil % 0.3 % (0.00-5.0); Eosinophil (Absolute #) 0.03 x10^3/uL (0-0.5); Hematocrit 38.4 % (42-50); Hemoglobin 12.8 g/dL (12.5-18.0); Lymphocyte (Absolute #) 2.55 x10^3/uL (1.0-4.6); Lymphocytes % 23.2 % (24.0-44.0); Mean Cell Volume 95.3 fL (78-100); Mean Corpuscular Hemoglobin 31.8 pg (26-32); Mean Corpuscular Hgb Concent. 33.3 g/dL (32-36); Mean Platelet Volume 10.2 fL (7.5-11.0); Monocyte (Absolute #) 0.55 x10^3/uL (0.0-1.3); Neutrophil % 70.8 % (36.0-66.0); Platelet Count 202 x10^3/uL (150-450); Red Blood Count 4.03 x10^6/uL (4.1-5.6); Red Cell Distribution Width 13.5 % (11.5-14.0)
[2022-04-16 10:22] LABS: Urine Cultured Indicated? NO
[2022-04-16 10:35] LABS: ALBUMIN 4.2 g/dL (3.5-5.0); ALKALINE PHOSPHATASE 47 U/L (38-126); AMYLASE 80 U/L (30-110); ANION GAP 11.2 MEQ/L (5-15); BLOOD UREA NITROGEN 14 mg/dL (9-20); CHLORIDE 104 mmol/L (98-107); Calcium 8.7 mg/dL (8.4-10.2); Carbon Dioxide 26 mmol/L (22-30); Creatinine 1 0.82 mg/dL (0.66-1.25); EST GLOMERULAR FILTRATION RATE > 60.0 ML/MIN; Glucose 129 mg/dL (74-106); LIPASE 71 U/L (23-300); SGOT/AST 30 U/L (17-59); SGPT/ALT 26 U/L (0-50); SODIUM 137 mmol/L (137-145); Total Protein 6.9 g/dL (6.3-8.2)
--- NOTE | 2022-04-16 10:42 | XRAY ---
Indication: Right flank pain. History kidney stones. Multiple contiguous axial images obtained through the abdomen and pelvis without contrast. Comparison: October 10, 2017 Lung bases again demonstrates dependent atelectasis and tiny left posterior gutter calcified granuloma. Heart not enlarged. Noncontrasted stomach and bowel loops appear nonobstructed with normal appendix. New 5-6 mm distal right ureter Is just proximal to UVJ. Proximal right ureter is prominent up to 9 mm along with mild hydronephrosis and right renal edema favoring partial obstructive uropathy. There are additional multiple bilateral punctate calculi. No free fluid/air. Remaining liver, gallbladder, pancreas, spleen, adrenal glands, and bladder are unremarkable for noncontrast exam. Again mild scattered aortoiliac calcifications without AAA. Osseous structures intact with new L4 remote compression fracture with near-complete collapse. Again small bilateral fatty inguinal hernias. Impression: 1. New 5-6 mm distal right ureter calculus producing obstructive uropathy as detailed. Again additional bilateral renal micro-calculi. 2. New remote L4 compression fracture. 3. Stable small bilateral fatty inguinal hernias.
[2022-04-16] MEDS ORDERED: Zofran 4 MG/2 ML VIAL ONE (10:47)
[2022-04-16] MEDS ORDERED: Sodium Chloride 0.9% 1000 ML 1,000 ML ONE (10:47)
[2022-04-16] MEDS ORDERED: SUBLIMAZE 100 MCG/2 ML ONE (10:47)
--- NOTE | 2022-04-16 11:49 | ERPHSYRPT ---
- History of Present Illness Time Seen by Provider: 04/16/22 10:00 Historian: patient Exam Limitations: no limitations Patient Subjective Stated Complaint: pt here for lower right abd pain since 0430 this morning. no vomiting Triage Nursing Assessment: pt alert, resp easy, skin w/d/p.face mask in place , abd soft no edema ntoed Physician History: Patient is a 66-year-old male who presents with a complaint of abdominal pain and right flank pain radiating into the right lower quadrant which awoke him from sleep at 438 this morning. He has a history of multiple renal stones passed both on the right and the left. He has had some nausea but has not vomited. Denies fever chills or sweats. Timing/Duration: today Activities at Onset: sleep Quality: sharpness, stabbing Abdominal Pain Onset Location: flank (Right flank) Pain Radiation: RLQ Severity of Pain-Max: severe Severity of Pain-Current: moderate Modifying Factors: Improves With: analgesics Previous symptoms: same symptoms as today Allergies/Adverse Reactions: amitriptyline Allergy (Verified 04/16/22 09:51) hydromorphone HCl [From Dilaudid] Allergy (Verified 04/16/22 09:51) infliximab [From Remicade] Allergy (Verified 04/16/22 10:00) zolpidem tartrate [From Ambien] Allergy (Verified 04/16/22 09:51) Home Medications: Pravastatin Sodium 40 mg PO HS 10/29/16 [History] Bisoprolol Fumarate 1 tab PO DAILY 12/21/21 [History] Ezetimibe 10 mg [Zetia 10 MG] 1 tab PO DAILY 12/21/21 [History] Prednisone 20 mg [Deltasone 20 mg] 0.5 tab PO DAILY 12/21/21 [History] Hx Tetanus, Diphtheria Vaccination/Date Given: Yes Hx Influenza Vaccination/Date Given: No Hx Pneumococcal Vaccination/Date Given: Yes Immunizations Up to Date: Yes Travel Risk - International Travel Have you traveled outside of the country in past 3 weeks: No - Coronavirus Screening Are you exhibiting any of the following symptoms?: No - Vaccine Status Have you recieved a Covid-19 vaccination: Yes Mental Retardation Nurse: Moderna - Vaccination Dates Date of 2cond Vaccination (if applicable): 2020 - Review of Systems Constitutional: No Fever, No Chills Eyes: No Symptoms Ears, Nose, & Throat: No Symptoms Respiratory: No Cough, No Dyspnea Cardiac: No Chest Pain, No Edema, No Syncope Abdominal/Gastrointestinal: No Abdominal Pain, No Nausea, No Vomiting, No Diarrhea Genitourinary Symptoms: No Dysuria Musculoskeletal: No Back Pain, No Neck Pain Skin: No Rash Neurological: No Dizziness, No Focal Weakness, No Sensory Changes Psychological: No Symptoms Endocrine: No Symptoms All Other Systems: Reviewed and Negative - Past Medical History Pertinent Past Medical History: Yes Neurological History: No Pertinent History Cardiac History: High Cholesterol, Hypertension Respiratory History: No Pertinent History Endocrine Medical History: No Pertinent History Musculoskeletal History: Arthritis, Degenerative Disk Disease GI Medical History: Colitis History: No Pertinent History Psycho-Social History: Depression Male Reproductive Disorders: No Pertinent History Other Medical History: ulcerative colitis, chronic lumbar back pain for years - Past Surgical History Past Surgical History: Yes Musculoskeletal: Orthopedic Surgery Other Surgical History: back surgery fused C 4- 5 - Social History Smoking Status: Former smoker How long have you smoked: 45 Exposure to second hand smoke: No Drug Use: none Patient Lives Alone: No - Nursing Vital Signs Nursing Vital Signs: Initial Vital Signs Temperature 97.0 F 04/16/22 09:55 Pulse Rate 60 04/16/22 09:55 Respiratory Rate 18 04/16/22 09:55 Blood Pressure 146/92 04/16/22 09:55 O2 Sat by Pulse Oximetry 96 04/16/22 09:55 Pain Scale Pain Intensity 9 - Physical Exam General Appearance: mild distress Eye Exam: PERRL/EOMI, eyes nml inspection Ears, Nose, Throat Exam: normal ENT inspection, pharynx normal, moist mucous membranes Neck Exam: normal inspection, non-tender, supple, full range of motion Respiratory Exam: normal breath sounds, lungs clear, No respiratory distress Cardiovascular Exam: regular rate/rhythm, normal heart sounds Gastrointestinal/Abdomen Exam: soft, No tenderness, No mass Back Exam: normal inspection, normal range of motion, CVA tenderness (Right) Extremity Exam: normal inspection, normal range of motion, pelvis stable Neurologic Exam: alert, oriented x 3, cooperative, normal mood/affect, nml cerebellar function, sensation nml, No motor deficits Skin Exam: normal color, warm, dry SpO2 Interpretation: normal SpO2: 96 O2 Delivery: Room Air - Course Nursing assessment & vital signs reviewed: Yes - CT Exams Abdomen/Pelvis CT Interpretation: Other (5 to 6 mm stone distal right ureter near the UVJ.) Ordered Tests: Active Orders 24 hr Category Date Time Status IV Insertion STAT Care 04/16/22 09:57 Active ABDOMEN AND PELVIS W/0 CONTRAS [CT] Stat Exams 04/16/22 09:57 Completed AMYLASE Stat Lab 04/16/22 10:10 Completed CBC W DIFF Stat Lab 04/16/22 10:10 Completed CMP Stat Lab 04/16/22 10:10 Completed LIPASE Stat Lab 04/16/22 10:10 Completed Lactic Acid Stat Lab 04/16/22 10:20 Completed UA W/RFX CULTURE Stat Lab 04/16/22 10:01 Completed Medication Summary Discontinued Medications Generic Name Dose Route Start Last Admin Trade Name Freq PRN Reason Stop Dose Admin Fentanyl Citrate 100 mcg 04/16/22 09:57 04/16/22 10:50 Fentanyl Citrate 100 Mcg/2 Ml* Vial IV 04/16/22 09:58 100 mcg STAT ONE Administration Fentanyl Citrate Confirm 04/16/22 10:47 Fentanyl Citrate 100 Mcg/2 Ml* Vial Administered 04/16/22 10:48 Dose 100 mcg .ROUTE .STK-MED ONE Sodium Chloride 1,000 mls @ 999 mls/hr 04/16/22 09:57 04/16/22 10:48 Sodium Chloride 0.9% 1000 Ml IV 04/16/22 10:57 999 mls/hr .Q1H1M STA Administration Sodium Chloride Confirm 04/16/22 10:47 Sodium Chloride 0.9% 1000 Ml Administered 04/16/22 10:48 Dose 1,000 mls @ ud .ROUTE .STK-MED ONE Ondansetron HCl 4 mg 04/16/22 09:57 04/16/22 10:50 Ondansetron Hcl 4 Mg/2 Ml Vial IV 04/16/22 09:58 4 mg STAT ONE Administration Ondansetron HCl Confirm 04/16/22 10:47 Ondansetron Hcl 4 Mg/2 Ml Vial Administered 04/16/22 10:48 Dose 4 mg .ROUTE .STK-MED ONE Lab/Rad Data: Laboratory Result Diagrams 04/16/22 10:10 04/16/22 10:10 Laboratory Results 12/07/22 12/07/22 12/07/22 Range/Units 10:20 10:10 10:10 WBC 11.0 H (4.0-10.5) x10^3/uL RBC 4.03 L (4.1-5.6) x10^6/uL Hgb 12.8 (12.5-18.0) g/dL Hct 38.4 L (42-50) % MCV 95.3 (78-100) fL MCH 31.8 (26-32) pg MCHC 33.3 (32-36) g/dL RDW 13.5 (11.5-14.0) % Plt Count 202 (150-450) x10^3/uL MPV 10.2 (7.5-11.0) fL Gran % 70.8 H (36.0-66.0) % Immature Gran % (Auto) 0.4 (0.00-0.4) % Nucleat RBC Rel Count 0.0 (0.00-0.1) % Eos # (Auto) 0.03 (0-0.5) x10^3/uL Immature Gran # (Auto) 0.04 H (0.00-0.03) x10^3u/L Absolute Lymphs (auto) 2.55 (1.0-4.6) x10^3/uL Absolute Monos (auto) 0.55 (0.0-1.3) x10^3/uL Absolute Nucleated RBC 0.00 (0.00-0.01) x10^3u/L Lymphocytes % 23.2 L (24.0-44.0) % Monocytes % 5.0 (0.0-12.0) % Eosinophils % 0.3 (0.00-5.0) % Basophils % 0.3 (0.0-0.4) % Absolute Granulocytes 7.80 H (1.4-6.9) x10^3/uL Basophils # 0.03 (0-0.4) x10^3/uL Sodium 137 (137-145) mmol/L Potassium 4.0 (3.5-5.1) mmol/L Chloride 104 (98-107) mmol/L Carbon Dioxide 26 (22-30) mmol/L Anion Gap 11.2 (5-15) MEQ/L BUN 14 (9-20) mg/dL Creatinine 0.82 (0.66-1.25) mg/dL Estimated GFR > 60.0 ML/MIN Glucose 129 H (74-106) mg/dL Lactic Acid 1.3 (0.4-2.0) Calcium 8.7 (8.4-10.2) mg/dL Total Bilirubin 0.70 (0.2-1.3) mg/dL AST 30 (17-59) U/L ALT 26 (0-50) U/L Alkaline Phosphatase 47 (38-126) U/L Serum Total Protein 6.9 (6.3-8.2) g/dL Albumin 4.2 (3.5-5.0) g/dL Amylase 80 (30-110) U/L Lipase 71 (23-300) U/L Urinalys Dipstick Clnc Urine Color (YELLOW) Urine Appearance (CLEAR) Urine pH (5-6) Ur Specific [place] (1.005-1.025) POC Urine Protein Conf (Negative) Urine Ketones (NEGATIVE) Urine Nitrite (NEGATIVE) Urine Bilirubin (NEGATIVE) Urine Urobilinogen (0-1) mg/dL Urine Leukocytes (NEGATIVE) Urine WBC (Auto) (0-5) /HPF Urine RBC (Auto) (0-2) /HPF U Epithel Cells (Auto) (FEW) /HPF Urine Bacteria (Auto) (NEGATIVE) /HPF Urine RBC (0-5) Ajay/ul Ur Culture Indicated? Urine Glucose (NEGATIVE) mg/dL 04/16/22 Range/Units 10:01 WBC (4.0-10.5) x10^3/uL RBC (4.1-5.6) x10^6/uL Hgb (12.5-18.0) g/dL Hct (42-50) % MCV (78-100) fL MCH (26-32) pg MCHC (32-36) g/dL RDW (11.5-14.0) % Plt Count (150-450) x10^3/uL MPV (7.5-11.0) fL Gran % (36.0-66.0) % Immature Gran % (Auto) (0.00-0.4) % Nucleat RBC Rel Count (0.00-0.1) % Eos # (Auto) (0-0.5) x10^3/uL Immature Gran # (Auto) (0.00-0.03) x10^3u/L Absolute Lymphs (auto) (1.0-4.6) x10^3/uL Absolute Monos (auto) (0.0-1.3) x10^3/uL Absolute Nucleated RBC (0.00-0.01) x10^3u/L Lymphocytes % (24.0-44.0) % Monocytes % (0.0-12.0) % Eosinophils % (0.00-5.0) % Basophils % (0.0-0.4) % Absolute Granulocytes (1.4-6.9) x10^3/uL Basophils # (0-0.4) x10^3/uL Sodium (137-145) mmol/L Potassium (3.5-5.1) mmol/L Chloride (98-107) mmol/L Carbon Dioxide (22-30) mmol/L Anion Gap (5-15) MEQ/L BUN (9-20) mg/dL Creatinine (0.66-1.25) mg/dL Estimated GFR ML/MIN Glucose (74-106) mg/dL Lactic Acid (0.4-2.0) Calcium (8.4-10.2) mg/dL Total Bilirubin (0.2-1.3) mg/dL AST (17-59) U/L ALT (0-50) U/L Alkaline Phosphatase (38-126) U/L Serum Total Protein (6.3-8.2) g/dL Albumin (3.5-5.0) g/dL Amylase (30-110) U/L Lipase (23-300) U/L Urinalys Dipstick Clnc MAIN LAB Urine Color YELLOW (YELLOW) Urine Appearance CLEAR (CLEAR) Urine pH 7.0 (5-6) Ur Specific [place] 1.010 (1.005-1.025) POC Urine Protein Conf NEGATIVE (Negative) Urine Ketones NEGATIVE (NEGATIVE) Urine Nitrite NEGATIVE (NEGATIVE) Urine Bilirubin NEGATIVE (NEGATIVE) Urine Urobilinogen 0.2 (0-1) mg/dL Urine Leukocytes NEGATIVE (NEGATIVE) Urine WBC (Auto) NONE (0-5) /HPF Urine RBC (Auto) 0-2 (0-2) /HPF U Epithel Cells (Auto) NONE (FEW) /HPF Urine Bacteria (Auto) NONE (NEGATIVE) /HPF Urine RBC MODERATE A (0-5) Ajay/ul Ur Culture Indicated? NO Urine Glucose NEGATIVE (NEGATIVE) mg/dL - Progress Progress: improved - Departure Departure Disposition: Home Clinical Impression: Right ureteral stone Condition: Stable Critical Care Time: No Referrals: MADDEI OJEDA NP [Primary Care Provider] - Follow up/PCP as directed Instructions: Renal Colic (DC) Prescriptions: Ondansetron ODT 4 MG [Zofran Odt 4 mg] 4 mg PO Q6H PRN PRN #10 tablet PRN Reason: Vomiting Tamsulosin HCl 0.4 mg [Flomax 0.4 MG] 0.4 mg PO DAILY 5 Days #5 cap Oxycodone HCl/Acetaminophen [Percocet 10-325 mg Tablet] 1 each PO Q6H 3 Days #12 tablet MDD 4
== END 2022-04-16 11:55 | disposition home or self-care (01) ==
LOC: ED 09:36
DX: N20.1 Calculus of ureter (principal); Z87.442 Personal history of urinary calculi; R10.31 Right lower quadrant pain; R11.0 Nausea; Z79.899 Other long term (current) drug therapy; Z79.891 Long term (current) use of opiate analgesic
CPT/HCPCS: 36000; 36415; 74176; 80053; 81015; 82150; 83605; 83690; 85025; 96360; 96374; 96375; 99284; J2405; J3010

== ENCOUNTER 2023-08-03 23:06 | Observation (INO) | payer MEDICARE, OTHER ==
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
[2023-08-03 23:39] LABS: BASOPHIL % 0.3 % (0.0-0.4); Basophil (Absolute #) 0.03 x10^3/uL (0-0.4); Eosinophil (Absolute #) 0.11 x10^3/uL (0-0.5); Hemoglobin 13.4 g/dL (12.5-18.0); IMMATURE GRAN # 0.04 x10^3u/L (0.00-0.03); IMMATURE GRAN % 0.4 % (0.00-0.4); Lymphocyte (Absolute #) 3.29 x10^3/uL (1.0-4.6); Lymphocytes % 31.1 % (24.0-44.0); Mean Cell Volume 94.8 fL (78-100); Mean Corpuscular Hemoglobin 31.8 pg (26-32); Mean Corpuscular Hgb Concent. 33.5 g/dL (32-36); Mean Platelet Volume 10.3 fL (7.5-11.0); Monocyte (Absolute #) 1.32 x10^3/uL (0.0-1.3); Monocytes % 12.5 % (0.0-12.0); Neutrophil % 54.7 % (36.0-66.0); Platelet Count 227 x10^3/uL (150-450); Red Blood Count 4.22 x10^6/uL (4.1-5.6); Red Cell Distribution Width 13.1 % (11.5-14.0); White Blood Count 10.6 x10^3/uL (4.0-10.5)
[2023-08-03] MEDS ORDERED: BABY ASPIRIN 81 MG CHEW ONE (23:45)
[2023-08-03] MEDS ORDERED: Sodium Chloride 0.9% 1000 ML 1,000 ML ONE (23:45)
[2023-08-03] MEDS: Sodium Chloride 0.9% 1000 ML 1,000 ML IV SCH (23:46)
[2023-08-03] MEDS: BABY ASPIRIN 81 MG CHEW PO ONE (23:46)
[2023-08-03 23:47] LABS: ALBUMIN 4.3 g/dL (3.5-5.0); ANION GAP 11.8 MEQ/L (5-15); BILIRUBIN,TOTAL 0.5 mg/dL (0.2-1.3); Calcium 8.9 mg/dL (8.4-10.2); Creatinine 1 0.99 mg/dL (0.66-1.25); EST GLOMERULAR FILTRATION RATE 83.5 ML/MIN; Potassium 3.6 mmol/L (3.5-5.1); Total Protein 7.2 g/dL (6.3-8.2)
[2023-08-03 23:48] LABS: D-DIMER QUANTITATIVE 0.5 mg/L (0.0-0.50); INR 1.1 (0.8-3.0); PROTIME 11.9 SECONDS (9.4-12.5)
[2023-08-04 00:05] LABS: NT PRO BNPII 321 pg/mL (<300); TROPONIN < 0.012 ng/mL (0.000-0.034)
[2023-08-04] MEDS ORDERED: MORPHINE SULFATE 4 MG INJ ONE (00:57)
[2023-08-04] MEDS: MORPHINE SULFATE 4 MG INJ IV ONE (00:58)
--- NOTE | 2023-08-04 01:52 | XRAY ---
CLINICAL HISTORY: Persistent chest pain TECHNIQUE: Contiguous 3.[address] images of the chest were acquired without contrast. Coronal and sagittal reconstructions were obtained. CTDI: 1085 (mGy), DLP: 884.44 (mGy-cm), "One of the following dose reduction techniques was utilized for this exam: Automated exposure control, adjustment of the mA and/or kV according to patient size, and use of iterative reconstruction." COMPARISON: 10/29/2016 FINDINGS: Mild centrilobular emphysematous changes were seen in bilateral upper lobes. A 5 mm calcified subpleural nodule was seen in the superior segment of the left lower lobe. another smaller calcified nodule is seen along its posterior basal segment Mild subpleural plate atelectasis with haziness seen in the posterior aspect of basal segments of bilateral lower lobes, more evident on the left side. Right lower lobe bleb is noted. elevated left diaphragmatic copula.. No free or encysted pleural effusion. Heart size is normal, and there is no pericardial effusion. No pathologically enlarged mediastinal, hilar or axillary lymph node was identified. The thoracic spine shows degenerative changes. There is no definite mass lesion in the chest wall. The scanned upper abdomen is unremarkable. IMPRESSION: 1. Bilateral pulmonary emhysematous changes. 2. left lower lobe calcified nodules, no follow up is required 3. Mild subpleural plate atelectasis with haziness seen in posterior aspect of basal segments of bilateral lower lobes, more on the left side. 4. no significant changes since the last study. Electronically Signed by: Sarah Duque MD. (08/04/2023 01:47:50 EDT)
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
[2023-08-04] MEDS ORDERED: TYLENOL 325 MG PO PRN ×2 (04:06→07:34)
[2023-08-04] MEDS ORDERED: Zofran 4 MG/2 ML VIAL IV PRN (04:06)
[2023-08-04] MEDS ORDERED: Sodium Chloride 0.9% 1000 ML 1,000 ML IV SCH (04:06)
[2023-08-04] MEDS ORDERED: MORPHINE SULFATE 4 MG INJ IV PRN (04:06)
[2023-08-04] MEDS ORDERED: Flomax 0.4 MG PO PRN (07:33)
[2023-08-04 07:43] VITALS: BP 126/60; PULSE 60; RESP 16; TEMP 97.9
--- NOTE | 2023-08-04 08:05 | PCM.DS ---
Discharge Summary Date of Admission: 08/04/23 04:04 Date of Discharge: 08/04/23 Admitting Physician: NIEVES TARIQ MD Primary Care Provider: MADDIE OJEDA Allergies Allergies amitriptyline Allergy (Verified 08/03/23 23:22) hydromorphone HCl [From Dilaudid] Allergy (Verified 08/03/23 23:22) infliximab [From Remicade] Allergy (Verified 08/03/23 23:22) zolpidem tartrate [From Ambien] Allergy (Verified 08/03/23 23:22) Hospital Summary - Hospital Course Hospital Course: Mr. LUTZ is a 67 year old male with a past medical history significant for hypertension, hyperlipidemia, BPH and previous tobacco use who presents to the hospital with complaints of vague twinges of chest pain/pressure. He was seen in the ER, given ASA/morphine but pain has not subsided. Strong family history of coronary artery disease. Initial EKG and first two sets of cardiac enzymes negative but was recommended for admission to evaluate his persistent symptoms. 3rd troponin is negative. He reports pain has improved and has no correlation to anything just comes and goes as an intermittent sharp pain. He dos follow Dr. Saez - cardiology. Explained he will need more work up OP with cardiology. Chest CT does show: Bilateral pulmonary emphysematous changes and Mild subpleural plate atelectasis with haziness seen in posterior aspect of basal segments of bilateral lower lobes, more on the left side. He is currently room air @ 93%. - Vitals & Intake/Output Vital Signs: Vital Signs Temperature 97.9 F 08/04/23 07:42 Pulse Rate 60 08/04/23 07:42 Respiratory Rate 16 08/04/23 07:42 Blood Pressure 126/60 08/04/23 07:42 O2 Sat by Pulse Oximetry 93 L 08/04/23 07:42 Intake & Output: Intake & Output 08/01/23 08/02/23 08/03/23 08/04/23 11:59 11:59 11:59 11:59 Weight 94.5 kg - Lab Result Diagrams: 08/04/23 08:10 08/04/23 08:10 Lab Results-Last 24 Hrs: Lab Results-Last 24 Hours 08/03/23 08/03/23 08/03/23 Range/Units 23:10 23:10 23:10 WBC 10.6 H (4.0-10.5) x10^3/uL RBC 4.22 (4.1-5.6) x10^6/uL Hgb 13.4 (12.5-18.0) g/dL Hct 40.0 L (42-50) % MCV 94.8 (78-100) fL MCH 31.8 (26-32) pg MCHC 33.5 (32-36) g/dL RDW 13.1 (11.5-14.0) % Plt Count 227 (150-450) x10^3/uL MPV 10.3 (7.5-11.0) fL Gran % 54.7 (36.0-66.0) % Immature Gran % (Auto) 0.4 (0.00-0.4) % Nucleat RBC Rel Count 0.0 (0.00-0.1) % Eos # (Auto) 0.11 (0-0.5) x10^3/uL Immature Gran # (Auto) 0.04 H (0.00-0.03) x10^3u/L Absolute Lymphs (auto) 3.29 (1.0-4.6) x10^3/uL Absolute Monos (auto) 1.32 H (0.0-1.3) x10^3/uL Absolute Nucleated RBC 0.00 (0.00-0.01) x10^3u/L Lymphocytes % 31.1 (24.0-44.0) % Monocytes % 12.5 H (0.0-12.0) % Eosinophils % 1.0 (0.00-5.0) % Basophils % 0.3 (0.0-0.4) % Absolute Granulocytes 5.80 (1.4-6.9) x10^3/uL Basophils # 0.03 (0-0.4) x10^3/uL PT 11.9 (9.4-12.5) SECONDS INR 1.10 (0.8-3.0) D-Dimer 0.50 (0.0-0.50) mg/L Sodium 139 (135-145) mmol/L Potassium 3.6 (3.5-5.1) mmol/L Chloride 106 (98-107) mmol/L Carbon Dioxide 26 (22-30) mmol/L Anion Gap 11.8 (5-15) MEQ/L BUN 14 (9-20) mg/dL Creatinine 0.99 (0.66-1.25) mg/dL Estimated GFR 83.5 ML/MIN Glucose 190 H (74-106) mg/dL Calcium 8.9 (8.4-10.2) mg/dL Total Bilirubin 0.50 (0.2-1.3) mg/dL AST 32 (17-59) U/L ALT 19 (0-50) U/L Alkaline Phosphatase 60 (38-126) U/L Troponin I (0.000-0.034) ng/mL NT-Pro-B Natriuret Pep (<300) pg/mL Serum Total Protein 7.2 (6.3-8.2) g/dL Albumin 4.3 (3.5-5.0) g/dL 08/03/23 08/04/23 08/04/23 Range/Units 23:10 02:00 07:06 WBC (4.0-10.5) x10^3/uL RBC (4.1-5.6) x10^6/uL Hgb (12.5-18.0) g/dL Hct (42-50) % MCV (78-100) fL MCH (26-32) pg MCHC (32-36) g/dL RDW (11.5-14.0) % Plt Count (150-450) x10^3/uL MPV (7.5-11.0) fL Gran % (36.0-66.0) % Immature Gran % (Auto) (0.00-0.4) % Nucleat RBC Rel Count (0.00-0.1) % Eos # (Auto) (0-0.5) x10^3/uL Immature Gran # (Auto) (0.00-0.03) x10^3u/L Absolute Lymphs (auto) (1.0-4.6) x10^3/uL Absolute Monos (auto) (0.0-1.3) x10^3/uL Absolute Nucleated RBC (0.00-0.01) x10^3u/L Lymphocytes % (24.0-44.0) % Monocytes % (0.0-12.0) % Eosinophils % (0.00-5.0) % Basophils % (0.0-0.4) % Absolute Granulocytes (1.4-6.9) x10^3/uL Basophils # (0-0.4) x10^3/uL PT (9.4-12.5) SECONDS INR (0.8-3.0) D-Dimer (0.0-0.50) mg/L Sodium (135-145) mmol/L Potassium (3.5-5.1) mmol/L Chloride (98-107) mmol/L Carbon Dioxide (22-30) mmol/L Anion Gap (5-15) MEQ/L BUN (9-20) mg/dL Creatinine (0.66-1.25) mg/dL Estimated GFR ML/MIN Glucose (74-106) mg/dL Calcium (8.4-10.2) mg/dL Total Bilirubin (0.2-1.3) mg/dL AST (17-59) U/L ALT (0-50) U/L Alkaline Phosphatase (38-126) U/L Troponin I < 0.012 < 0.012 < 0.012 (0.000-0.034) ng/mL NT-Pro-B Natriuret Pep 321 (<300) pg/mL Serum Total Protein (6.3-8.2) g/dL Albumin (3.5-5.0) g/dL - Radiology Exams Ordered Rad Exams-Entire Visit: Radiology Procedures Category Date Time Status CHEST 1 VIEW (PORTABLE) Stat Exams 08/03/23 23:33 Taken CHEST WITHOUT CONTRAST [CT] Stat Exams 08/04/23 00:45 Completed - Procedures and Test Procedures and Tests throughout Hospitalization: Therapy Orders & Screens 08/04/23 04:06 EKG REPEAT IN AM Comment: Discharge Exam General Appearance: no apparent distress, alert Neurologic Exam: alert, oriented x 3, cooperative, normal mood/affect, nml cerebellar function, sensation nml, No motor deficits Eye Exam: PERRL, EOMI, eyes nml inspection Ears, Nose, Throat Exam: normal ENT inspection, pharynx normal, moist mucous membranes Neck Exam: normal inspection, non-tender, supple, full range of motion Respiratory Exam: normal breath sounds, lungs clear, No respiratory distress Cardiovascular Exam: regular rate/rhythm, normal heart sounds Gastrointestinal/Abdomen Exam: soft, No tenderness, No mass Male Genitalia Exam: deferred Rectal Exam: deferred Back Exam: normal inspection, normal range of motion, No CVA tenderness, No vertebral tenderness Extremity Exam: normal inspection, normal range of motion Skin Exam: normal color, warm, dry Final Diagnosis/Problem List - Final Discharge Diagnosis/Problem (1) Chest pain Current Visit: No Status: Acute Assessment & Plan: - Trop x3 negative - ASA/ beta lizbet - tele - EKG - Dr. Saez is pt's caponizer- will make OP f/u appointment - CXR pending - Chest CT IMPRESSION: 1. Bilateral pulmonary emhysematous changes. 2. left lower lobe calcified nodules, no follow up is required 3. Mild subpleural plate atelectasis with haziness seen in posterior aspect of basal segments of bilateral lower lobes, more on the left side. 4. no significant changes since the last study. - Procal negative - RA 93% - BNP 321 - WBC 6.4 Code(s): R07.9 - CHEST PAIN, UNSPECIFIED (2) Essential (primary) hypertension Current Visit: Yes Status: Acute Assessment & Plan: - Low Na+ diet - Continue home BP meds - BP stable Code(s): I10 - ESSENTIAL (PRIMARY) HYPERTENSION (3) Hyperlipidemia Current Visit: Yes Status: Chronic Assessment & Plan: - continue statin Code(s): E78.5 - HYPERLIPIDEMIA, UNSPECIFIED - Discharge Discharge Date: 08/04/23 Disposition: Home, Self-Care Condition: Stable Prescriptions: Continue Bisoprolol Fumarate 1 tab PO DAILY Ezetimibe 10 mg [Zetia 10 MG] 1 tab PO HS Tamsulosin HCl 0.4 mg [Flomax 0.4 MG] 0.4 mg PO DAILY PRN PRN PRN Reason: prostate Atorvastatin Calcium 40 mg PO HS Additional Instructions: Please follow up with PCP for repeat chest XR in 1 week. If you develop symptoms of shortness of breath, fever, or cough please make appointment with PCP. Follow up with: ANJELICA ANGEL PA [NON-STAFF PHY W/O PRIVILEGES] - 08/11/23 9:00 am MADDIE OJEDA NP [Primary Care Provider] - 08/12/23 10:00 am
[2023-08-04] MEDS ORDERED: MEDICATION INTERVENTION MC SCH (08:15)
[2023-08-04 08:18] LABS: Hematocrit 37.9 % (42-50); Hemoglobin 12.4 g/dL (12.5-18.0); Mean Cell Volume 94.8 fL (78-100); Mean Corpuscular Hgb Concent. 32.7 g/dL (32-36); Mean Platelet Volume 9.7 fL (7.5-11.0); Platelet Count 192 x10^3/uL (150-450); Red Cell Distribution Width 13.2 % (11.5-14.0); White Blood Count 6.4 x10^3/uL (4.0-10.5)
[2023-08-04 08:30] LABS: ALBUMIN 3.5 g/dL (3.5-5.0); ANION GAP 11.2 MEQ/L (5-15); BILIRUBIN,TOTAL 0.6 mg/dL (0.2-1.3); Calcium 8.2 mg/dL (8.4-10.2); Creatinine 1 0.76 mg/dL (0.66-1.25); EST GLOMERULAR FILTRATION RATE 98.5 ML/MIN; Potassium 3.8 mmol/L (3.5-5.1); Total Protein 6.2 g/dL (6.3-8.2)
--- NOTE | 2023-08-04 08:58 | XRAY ---
Indication: Chest pain. Comparison: January 18, 2021 Portable apical lordotic chest less inflated with new mild left base infiltrate/atelectasis. Right lung clear. Heart not enlarged for AP portable technique. Bony thorax intact again with osteopenia, degenerative changes, and cervical fusion hardware.
[2023-08-04 09:30] VITALS: O2SAT 94
[2023-08-04] MEDS ORDERED: NON-FORMULARY ITEM (Bisoprolol Fumarate [Bisoprolol Fumarate] 5 MG Tablet) PO SCH (10:00)
[2023-08-04] MEDS ORDERED: ZOCOR 20MG PO SCH (22:00)
[2023-08-04] MEDS ORDERED: Zetia 10 MG PO SCH (22:00)
[2023-08-04] MEDS ORDERED: LIPITOR 40MG PO SCH (22:00)
== END 2023-08-04 11:17 | disposition home or self-care (01) ==
LOC: ED 23:06 → MED SURG 08-04 04:04
PROVIDERS: ADMIT Internal Medicine Nephrology; ATTEND Internal Medicine Nephrology
DX: R07.9 Chest pain, unspecified (principal); I10 Essential (primary) hypertension; E78.5 Hyperlipidemia, unspecified; N40.0 Benign prostatic hyperplasia without lower urinary tract symptoms; Z87.891 Personal history of nicotine dependence; Z79.899 Other long term (current) drug therapy; Z20.828 Contact with and (suspected) exposure to other viral communicable diseases; Z82.49 Family history of ischemic heart disease and other diseases of the circulatory system
CPT/HCPCS: 36000; 36415; 71045; 71250; 80053; 83880; 84145; 84484; 85025; 85027; 85379; 85610; 93005; 93041; 94760; 96374; Q3014; 93268; 99285; J2270; A9270-GY; G0378

== ENCOUNTER 2023-09-02 18:44 | Emergency (ER) | payer MEDICARE, OTHER ==
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
[2023-09-02] MEDS ORDERED: Sodium Chloride 0.9% 1000 ML 1,000 ML ONE ×2 (19:15→22:25)
[2023-09-02] MEDS ORDERED: TYLENOL 325 MG ONE (19:15)
[2023-09-02] MEDS ORDERED: TORAdol 30 mg Injection ONE (19:15)
[2023-09-02] MEDS: TORAdol 30 mg Injection IV ONE (19:19)
[2023-09-02] MEDS: Sodium Chloride 0.9% 1000 ML 1,000 ML IV STA ×2 (19:19→22:31)
[2023-09-02] MEDS: TYLENOL 325 MG PO STA (19:19)
[2023-09-02 19:26] LABS: Absolute Neutrophil Ct (ANC) 8.42 x10^3/uL (1.4-6.9); BASOPHIL % 0.3 % (0.0-0.4); Basophil (Absolute #) 0.03 x10^3/uL (0-0.4); Eosinophil % 0.7 % (0.00-5.0); Eosinophil (Absolute #) 0.08 x10^3/uL (0-0.5); Hematocrit 40.2 % (42-50); Hemoglobin 13.4 g/dL (12.5-18.0); IMMATURE GRAN # 0.04 x10^3u/L (0.00-0.03); IMMATURE GRAN % 0.3 % (0.00-0.4); Lymphocytes % 14.7 % (24.0-44.0); Mean Corpuscular Hemoglobin 31.7 pg (26-32); Mean Corpuscular Hgb Concent. 33.3 g/dL (32-36); Monocyte (Absolute #) 1.31 x10^3/uL (0.0-1.3); Monocytes % 11.3 % (0.0-12.0); Neutrophil % 72.7 % (36.0-66.0); Platelet Count 199 x10^3/uL (150-450); Red Blood Count 4.23 x10^6/uL (4.1-5.6); Red Cell Distribution Width 13.5 % (11.5-14.0); White Blood Count 11.6 x10^3/uL (4.0-10.5)
[2023-09-02 20:03] LABS: ISTAT CREA 0.8 mg/dL (0.6-1.3); ISTAT K 3.8 mmol/L (3.5-4.9); ISTAT iCA 1.11 mmol/L (1.12-1.32)
[2023-09-02 20:03] LABS: INFLUENZA A NEGATIVE (NEGATIVE); INFLUENZA B NEGATIVE (NEGATIVE); RESPIRATORY SYNCTIAL VIRUS NEGATIVE (NEGATIVE); SARS-CoV-2 Xpert Express NEGATIVE (NEGATIVE)
[2023-09-02 21:34] LABS: ALBUMIN 3.6 g/dL (3.5-5.0); ANION GAP 14.6 MEQ/L (5-15); Calcium 8.5 mg/dL (8.4-10.2); Creatinine 1 0.83 mg/dL (0.66-1.25); EST GLOMERULAR FILTRATION RATE 95.9 ML/MIN; Potassium 4.2 mmol/L (3.5-5.1); Total Protein 6.1 g/dL (6.3-8.2)
[2023-09-02 21:48] LABS: BILIRUBIN,TOTAL 0.8 mg/dL (0.2-1.3)
[2023-09-02] MEDS ORDERED: Levofloxacin 500MG/100ML D5W 500 MG/100 ML BAG IV ONE (22:25)
[2023-09-02] MEDS ORDERED: FLAGYL 500 MG IVPB 500 MG/100 ML BAG IV ONE (22:25)
[2023-09-02] MEDS: FLAGYL 500 MG IVPB 500 MG/100 ML BAG IV STA (22:32)
[2023-09-02] MEDS: Levofloxacin 500MG/100ML D5W 500 MG/100 ML BAG IV STA (22:41)
[2023-09-03 00:31] LABS: Appearance Clear (Clear); Bacteria None Seen /HPF (None Seen); Bilirubin Negative (Negative); Blood Negative (Negative); Epithelial Cells None Seen /HPF (None Seen); Glucose, Urine Negative (Negative); Hyaline Casts NONE SEEN /LPF (0-2); Ketones Negative (Negative); Leukocyte Esterase Negative (Negative); Nitrite Negative (Negative); Ph 6.5 (4.6-8.0); Protein,Urine Dip Negative (Negative); RBC 0-2 /HPF (0-5); Specific Gravity >=1.030 (1.005-1.030); WBC 0-2 /HPF (0-5)
[2023-09-03 00:32] LABS: ADD URINE CULTURE? NO (NO)
[2023-09-03] MEDS ORDERED: MORPHINE SULFATE 2 MG INJ ONE (00:43)
[2023-09-03] MEDS: MORPHINE SULFATE 2 MG INJ IV ONE (00:45)
[2023-09-03 01:02] VITALS: BP 97/66; PULSE 68; RESP 15; TEMP 97.6; O2SAT 97
--- NOTE | 2023-09-03 08:40 | XRAY ---
Indication: Elevated d-dimer. Multiple contiguous axial images obtained through the chest using 100 cc Isovue 370 contrast and PE protocol. Comparison: CT chest without contrast August 04, 2023 Good opacification of the pulmonary arteries to include the lobar and segmental branches. No pulmonary embolus. Heart not enlarged again with scattered coronary calcifications. Aorta is normal in course and caliber again with minimal arch calcifications. No pathologic mediastinal/hilar lymphadenopathy. Lungs again demonstrate mild diffuse pulmonary emphysema, minimal bilateral dependent atelectasis, and a few tiny left lung calcified granulomas. No new pulmonary mass/nodule, infiltrate, or effusion. Bony thorax intact again with incompletely visualized lower cervical fusion hardware. CT abdomen/pelvis reported separately. Impression: 1. Negative pulmonary embolus. No new/acute cardiopulmonary abnormalities. 2. Again chronic findings including arteriosclerotic disease and old granulomatous disease.
--- NOTE | 2023-09-03 08:45 | XRAY ---
Indication: Pain. Multiple contiguous axial images obtained through the abdomen and pelvis using 100 cc Isovue 370 contrast. Comparison: April 16, 2022 CT chest reported separately. Noncontrasted stomach and bowel loops appear nonobstructed again with normal appendix. New mild diffuse colonic bowel wall thickening with mild pericolonic stranding greatest in left hemicolon favoring colitis. Also new tiny air bubbles throughout abdomen and lesser degree pelvis concerning for GI perforation without clear origin. No free fluid. Remaining liver, gallbladder, pancreas, spleen, adrenal glands, kidneys, ureters, and bladder are unremarkable. Stable mild scattered aortoiliac calcifications. No AAA or pathologic retroperitoneal lymphadenopathy. Osseous structures again demonstrates minimal/mild degenerative changes throughout thoracolumbar spine, remote L4 compression fracture, and mild degenerative changes both hips. Impression: 1. New CT findings favoring diffuse colitis. Also new tiny abdominal/pelvic free air concerning for GI perforation. No clear origin. 2. Again chronic findings including arteriosclerotic disease and chronic bony findings.
== END 2023-09-03 01:47 | disposition short-term general hospital (02) ==
LOC: ED 18:44
DX: K52.9 Noninfective gastroenteritis and colitis, unspecified (principal); K63.1 Perforation of intestine (nontraumatic); A41.9 Sepsis, unspecified organism; R42 Dizziness and giddiness; R53.1 Weakness; R06.02 Shortness of breath; R10.9 Unspecified abdominal pain; R50.9 Fever, unspecified; R00.0 Tachycardia, unspecified; E87.20 Acidosis, unspecified
CPT/HCPCS: 0241U; 36000; 36415; 71260; 74177; 80053; 81001; 83605; 83690; 84484; 85025; 85379; 87040; 93005; 93041; 94760; 96365; 96368; 96374; 96375; 99285; 99291; 99292; 80047; 96360; J1885; J1956; J2270; A9270-GY